=== PATIENT | male | born 1945 | race Caucasian/White ===

== ENCOUNTER → 2018-01-14 11:44 | Outpatient (CLI) | payer MEDICARE, OTHER, SELFPAY ==
[2018-01-14 13:30] LABS: Alanine Aminotransferase 23 IU/L (21-72); Albumin 4.3 g/dL (3.5-5.0); Albumin Globulin Ratio 1.7 (1.0-2.8); Alkaline Phosphatase 59 U/L (38-126); Aspartate Aminotransferase 25 IU/L (17-59); BUN Creatinine Ratio 22.5 (6-22); Bilirubin Total 0.6 mg/dL (0.2-1.3); Blood Urea Nitrogen 18 mg/dL (9-20); Calcium 9.5 mg/dL (8.4-10.2); Carbon Dioxide 28 mmol/L (22-32); Chloride 106 mmol/L (98-107); Cholesterol 195 mg/dL (140-199); Estimated Glomerular Filt Rate > 60.0 mL/min (>60); Globulin 2.5 g/dL (1.7-4.1); Glucose 97 mg/dL (80-110); HDL Cholesterol 40 mg/dL (40-60); LDL Cholesterol Calculated 132 mg/dL (<100); Potassium 4.8 mmol/L (3.4-5.1); Sodium 144 mmol/L (137-145); Total Protein 6.8 g/dL (6.3-8.2); Triglycerides 113 mg/dL (35-150)
[2018-01-14 14:02] LABS: HEMOLYSIS < 15 (0-50); Prostate Specific Antigen Scrn 0.413 ng/mL (0.1-4.0)
== END ==
PROVIDERS: PCP Family Medicine; Visit Provider Family Medicine
DX: I10 Essential (primary) hypertension (principal); Z76.89 Persons encountering health services in other specified circumstances
CPT/HCPCS: 36415; 80053; 80061; G0103

== ENCOUNTER → 2018-05-09 10:46 | Outpatient (CLI) | payer MEDICARE, OTHER, SELFPAY | PROVIDERS: Family Provider Internal Medicine; PCP Family Medicine; Visit Provider Family Medicine | DX: Z01.818 Encounter for other preprocedural examination (principal) | CPT/HCPCS: 87797 ==

== ENCOUNTER 2018-06-04 11:44 | Day surgery (SDC) | payer MEDICARE, OTHER, SELFPAY ==
[2018-06-04 12:24] VITALS: BP 144/89; PULSE 67; RESP 18; TEMP 36.2; O2SAT 98; BMI 25.6
[2018-06-04] MEDS: PROPARACAINE 0.5% OPHTH SOL 2 DROPS EYE-OP (12:28)
[2018-06-04] MEDS: CATARACT EYE COMPOUND (10 DROPS/SYRINGE) 3 DROPS EYE-OP (12:36)
--- NOTE | 2018-06-04 13:09 | PM.PREOP ---
Pre-operative Note Interval Note History & Physical reviewed/Exam performed by Physician: No Changes to H&P: No
--- NOTE | 2018-06-04 13:09 | PM.OP.1 ---
Operative Date/Time/Diagnoses Pre-op diagnosis: Nuclear Cataract Left eye Post-op diagnosis: same Procedure & Clinicians Surgeon: Arsenio Okeefe Anesthesia Type: MAC +/- and Sedation Operative Notes Procedure in detail: Patient brought to the operating suite. Tetracaine drops placed in the left eye. The marking instrument was used to anita the vertical and horizontal meridians. Patient was prepped and draped in sterile manner. Wire lid speculum was placed in the eye. The 150 degree meridian was marked. Betadine drops were placed on the eye. This was irrigated. Lidocaine jelly was placed on the eye. A paracentesis port was created with a side-port blade. 0.1 mL 1% preservative free lidocaine was injected into the anterior chamber. The anterior chamber was deepened with viscoelastic. 2.6 mm keratome was used to create a temporal clear corneal incision. Cystotome and Utrata forceps were used to create continuous tear capsulorrhexis. Balanced salt solution was used to hydro dissect the nucleus. The phacoemulsification handpiece was inserted and the nucleus was removed using the stop and chop technique. The irrigation aspiration handpiece was inserted and the remaining cortex was removed. Anterior chamber was deepened with viscoelastic. An Zhang [id number] intraocular lens with a power of 21.0 was injected into the capsular bag. Irrigation aspiration handpiece was inserted and the remaining viscoelastic was removed. The lens was rotated to [id number] degree meridian. Incision was hydrated with balanced salt solution and found to be leak free with pressure with Weck-Lupe sponges. 0.1 mL Vigamox injected anterior chamber. 0.3 mL Kenalog 10 mg was injected subconjunctivally. Lid speculum was removed. The patient left the operating room in excellent condition. Complications: none Condition: stable Disposition: same day surgery
[2018-06-04] MEDS: PHENYLEPHRINE/LIDOCAINE VIAL (OR) 0.2 ML EYE-OP (13:20)
[2018-06-04] MEDS: MOXIFLOXACIN OPHTH DROPS 3 ML BOTTLE 2 DROPS INJ (13:21)
[2018-06-04] MEDS: TRIAMCINOLONE 50 MG/5 ML VIAL INJ (13:21)
[2018-06-04] MEDS: CHONDROIDTIN/SOD HYALURONATE 1.05 ML SYRINGE INTRAOCULA (13:21)
[2018-06-04] MEDS: LIDOCAINE JELLY 2% 5 ML 1 APPLIC TOP (13:22)
[2018-06-04] MEDS: TETRACAINE 0.5% OPHTH DROPS 4 ML 2 DROPS EYE-OP (13:22)
[2018-06-04] MEDS: BALANCED SALT IRRIG SOLN NO.2 500 ML, EPINEPHrine 1 MG IRR (13:22)
[2018-06-04 13:38] VITALS: BP 128/87; PULSE 65; RESP 16; TEMP 36.6; O2SAT 95
== END 2018-06-04 13:57 | disposition home or self-care (01) ==
PROVIDERS: PCP Family Medicine; Visit Provider Ophthalmology
DX: H25.12 Age-related nuclear cataract, left eye (principal)
CPT/HCPCS: J0171; J2250; J3010; J3301; V2787

== ENCOUNTER 2018-06-18 07:14 | Day surgery (SDC) | payer MEDICARE, OTHER, SELFPAY ==
[2018-06-18 07:46] VITALS: BP 153/86; PULSE 67; RESP 15; TEMP 36; O2SAT 97
[2018-06-18 07:48] VITALS: BMI 25.7
[2018-06-18] MEDS: PROPARACAINE 0.5% OPHTH SOL 2 DROPS EYE-OP (07:55)
[2018-06-18] MEDS: CATARACT EYE COMPOUND (10 DROPS/SYRINGE) 3 DROPS EYE-OP (08:02)
[2018-06-18] MEDS: PHENYLEPHRINE/LIDOCAINE VIAL (OR) 0.2 ML EYE-OP (08:45)
[2018-06-18] MEDS: TETRACAINE 0.5% OPHTH DROPS 4 ML 2 DROPS EYE-OP (08:46)
[2018-06-18] MEDS: CHONDROIDTIN/SOD HYALURONATE 1.05 ML SYRINGE INTRAOCULA (08:46)
[2018-06-18] MEDS: MOXIFLOXACIN OPHTH DROPS 3 ML BOTTLE 2 DROPS INJ (08:46)
[2018-06-18] MEDS: TRIAMCINOLONE 50 MG/5 ML VIAL INJ (08:46)
[2018-06-18] MEDS: LIDOCAINE JELLY 2% 5 ML 1 APPLIC TOP (08:46)
[2018-06-18] MEDS: BALANCED SALT IRRIG SOLN NO.2 500 ML, EPINEPHrine 1 MG IRR (08:47)
--- NOTE | 2018-06-18 09:02 | PM.PREOP ---
Pre-operative Note Interval Note History & Physical reviewed/Exam performed by Physician: No Changes to H&P: No
--- NOTE | 2018-06-18 09:03 | P.OP_ITS ---
Operative Date/Time/Diagnoses Pre-op diagnosis: Nuclear cataract right eye Procedure & Clinicians Procedure: Cataract Surgery Same procedure as scheduled: Yes Surgeon: Arsenio Okeefe Anesthesia Type: MAC +/- and Sedation Operative Notes Procedure in detail: Patient brought to the operating suite. Tetracaine drops placed in the right eye. Marking instrument was used to anita the vertical and horizontal meridian. Patient was prepped and draped in sterile manner. Wire lid speculum was placed in the eye. marking instrument was used to anita the 30 degree meridian. Betadine drops were placed on the eye. This was irrigated. Lidocaine jelly was placed on the eye. A paracentesis port was created with a side-port blade. 0.1 mL 1% preservative free lidocaine was injected into the anterior chamber. The anterior chamber was deepened with viscoelastic. 2.6 mm keratome was used to create a temporal clear corneal incision. Cystotome and U trata forceps were used to create continuous tear capsulorrhexis. Balanced salt solution was used to hydro dissect the nucleus. The phacoemulsification handpiece was inserted and the nucleus was removed using the stop and chop technique. The irrigation aspiration handpiece was inserted and the remaining cortex was removed. Anterior chamber was deepened with viscoelastic. An Zhang [id number] intraocular lens with a power of 21.5 was injected into the capsular bag. Irrigation aspiration handpiece was inserted and the remaining viscoelastic was removed. The lens was rotated to the 30 degree meridian. Incision was hydrated with balanced salt solution and found to be leak free with pressure with Weck- Lupe sponges. 0.1 mL Vigamox injected anterior chamber. 0.3 mL Kenalog 10 mg was injected subconjunctivally. Lid speculum was removed. The patient left the operating room in excellent condition. Complications: none Condition: stable Disposition: same day surgery
[2018-06-18 09:05] VITALS: BP 137/77; PULSE 69; RESP 15; TEMP 36.3; O2SAT 97
== END 2018-06-18 09:20 | disposition home or self-care (01) ==
LOC: OR 07:15
PROVIDERS: PCP Family Medicine; Visit Provider Ophthalmology
DX: H25.11 Age-related nuclear cataract, right eye (principal)
CPT/HCPCS: J0171; J2250; J3301; V2787

== ENCOUNTER → 2019-02-10 10:47 | Outpatient (CLI) | payer MEDICARE, OTHER, SELFPAY ==
[2019-02-10 11:21] LABS: Add Manual Diff / Slide Review NO; Basophils Absolute Auto 0 /uL (0-100); Basophils Percent Auto 0.3 % (0-2); Eosinophils Absolute Auto 100 /uL (0-450); Eosinophils Percent Auto 2.6 % (2-4); Hematocrit 44.7 % (41-53); Hemoglobin 15.1 g/dL (13.5-17.5); Lymphocytes Absolute Auto 1200 /uL (1100-4500); Lymphocytes Percent Auto 35.5 % (25-40); Mean Corpuscular HGB Conc 33.8 % (30-36); Mean Corpuscular Hemoglobin 31.8 PG (26-34); Monocytes Absolute Auto 400 /uL (0-900); Monocytes Percent Auto 10.8 % (3-14); Neutrophils Absolute Auto 1700 /uL (1500-7000); Neutrophils Percent Auto 50.8 % (50-75); Platelet Count 247 X10^3/uL (150-400); Red Blood Cell Count 4.76 X10^6/uL (4.5-5.9); White Blood Cell Count 3.4 X10^3/uL (4.5-11.0)
[2019-02-10 11:56] LABS: Alanine Aminotransferase 16 IU/L (21-72); Albumin 4.4 g/dL (3.5-5.0); Albumin Globulin Ratio 1.8 (1.0-2.8); Alkaline Phosphatase 72 U/L (38-126); Aspartate Aminotransferase 24 IU/L (17-59); BUN Creatinine Ratio 16.3 (6-22); Bilirubin Total 0.7 mg/dL (0.2-1.3); Blood Urea Nitrogen 13 mg/dL (9-20); Calcium 9.3 mg/dL (8.4-10.2); Carbon Dioxide 26 mmol/L (22-32); Chloride 105 mmol/L (98-107); Cholesterol 206 mg/dL (140-199); Estimated Glomerular Filt Rate > 60.0 mL/min (>60); Globulin 2.5 g/dL (1.7-4.1); Glucose 106 mg/dL (80-110); HDL Cholesterol 40 mg/dL (40-60); HEMOLYSIS < 15 (0-50); LDL Cholesterol Calculated 138 mg/dL (<100); Potassium 4.5 mmol/L (3.4-5.1); Sodium 140 mmol/L (137-145); Total Protein 6.9 g/dL (6.3-8.2); Triglycerides 139 mg/dL (35-150)
[2019-02-10 12:27] LABS: TSH w/ Reflex to FT4 3.55 uIU/mL (0.47-4.68)
[2019-02-10 12:45] LABS: Vitamin B12 282 pg/mL (239-931)
[2019-02-12 17:56] LABS: Folate, RBC 507 ng/mL RBC (> 280)
[2019-02-12 21:48] LABS: Methylmalonic Acid 303 nmol/L (87-318)
== END ==
PROVIDERS: PCP Family Medicine; Visit Provider Family Medicine
DX: E78.5 Hyperlipidemia, unspecified (principal); G62.9 Polyneuropathy, unspecified; R03.0 Elevated blood-pressure reading, without diagnosis of hypertension; I10 Essential (primary) hypertension
CPT/HCPCS: 36415; 80053; 80061; 82607; 82747; 83090; 83921; 84443; 85025

== ENCOUNTER → 2019-04-21 14:10 | Outpatient (CLI) | payer MEDICARE, OTHER, SELFPAY ==
[2019-04-21 15:39] LABS: Vitamin B12 389 pg/mL (239-931)
[2019-04-25 14:42] LABS: Homocysteine 18.7 umol/L (< 11.4)
== END ==
PROVIDERS: PCP Family Medicine; Visit Provider Family Medicine
DX: E78.5 Hyperlipidemia, unspecified (principal); G62.9 Polyneuropathy, unspecified; R03.0 Elevated blood-pressure reading, without diagnosis of hypertension
CPT/HCPCS: 82607; 83090

== ENCOUNTER → 2019-08-02 08:27 | Outpatient (CLI) | payer MEDICARE, OTHER, SELFPAY ==
[2019-08-02 09:25] LABS: BUN Creatinine Ratio 15.9 (6-22); Blood Urea Nitrogen 14 mg/dL (9-20); Calcium 9.1 mg/dL (8.4-10.2); Carbon Dioxide 25 mmol/L (22-32); Chloride 107 mmol/L (98-107); Cholesterol 173 mg/dL (140-199); Estimated Glomerular Filt Rate > 60.0 mL/min (>60); Glucose 103 mg/dL (80-110); HDL Cholesterol 30 mg/dL (40-60); HEMOLYSIS < 15 (0-50); LDL Cholesterol Calculated 127 mg/dL (<100); Potassium 4.3 mmol/L (3.4-5.1); Sodium 140 mmol/L (137-145); Triglycerides 80 mg/dL (35-150)
[2019-08-02 10:14] LABS: Vitamin B12 388 pg/mL (239-931)
[2019-08-03 07:16] LABS: Homocysteine 19.6 umol/L (0.0-19.2)
[2019-08-04 18:07] LABS: Methylmalonic Acid,Serum 200 nmol/L (0-378)
== END ==
PROVIDERS: PCP Family Medicine; Referring Provider Family Medicine; Visit Provider Family Medicine
DX: G62.9 Polyneuropathy, unspecified (principal); R03.0 Elevated blood-pressure reading, without diagnosis of hypertension; E78.5 Hyperlipidemia, unspecified; R73.01 Impaired fasting glucose; I10 Essential (primary) hypertension
CPT/HCPCS: 36415; 80048; 80061; 82607; 83090; 83921

== ENCOUNTER → 2020-01-03 14:31 | Outpatient (CLI) | payer MEDICARE, OTHER, SELFPAY ==
[2020-01-06 12:10] LABS: COVID19 -Nasal RAPID Negative (Negative)
== END ==
PROVIDERS: PCP Family Medicine; Visit Provider Physician Assistant
DX: Z11.59 Encounter for screening for other viral diseases (principal)
CPT/HCPCS: 87635

== ENCOUNTER 2020-01-06 11:26 | Day surgery (SDC) | payer MEDICARE, OTHER, SELFPAY ==
[2020-01-06] VITALS (7 sets, daily range): BP systolic 119–147; BP diastolic 79–94; PULSE 64–79; RESP 10–16; TEMP 36.2–36.6; O2SAT 76–97; BMI 23.3
[2020-01-06] MEDS: LACTATED RINGERS 1,000 ML 42 ML IV (11:57)
--- NOTE | 2020-01-06 12:45 | PM.HP.1 ---
History of Present Illness History of Present Illness Date Patient Seen: 01/06/20 Time Patient Seen: 12:45 Chief complaint: SCREENING COLONOSCOPY Narrative: This is a 74-year-old man who is here for screening colonoscopy. He had a prior colonoscopy approximately 10 years ago, was told it was normal. In the interim he has not had any new symptoms such as blood in the stool, dark colored/tarry looking stool, unexplained abdominal pain, or unexplained weight loss. He denies any significant family history of colon polyps or colon cancers. He says he is otherwise quite healthy, denies any significant cardiac, renal, or pulmonary dysfunction. ROS: Positive for GERD, enlarged prostate, easy bruising, neuropathy hard of hearing. Thirteen system review is otherwise negative other than as mentioned below and in HPI. PE: GENERAL: Well groomed and cooperative. Appears stated age. Answers questions promptly and appropriately. Vital signs noted. HENT: Normocephalic, atraumatic. Hearing intact. EYES: Conjunctiva pink, sclera white, no periorbital swelling. CARDIOVASCULAR: Regular rate. No pedal edema. RESPIRATORY: Non-tachypneic, breathing comfortably on room air. GASTROINTESTINAL: Abdomen soft and non-distended GENITALURINARY: No flank tenderness. MUSCULOSKELETAL: Equal tone and mass bilaterally. SKIN: Warm, dry, soft, appropriate color for ethnicity. No other lesions, rashes, or wounds. NEURO: Alert and Oriented X 3. No gross sensory deficits, or cognitive issues. PSYCH: Appropriate affect and mood. Patient History Medical History Actinic keratosis (Chronic) Acute labyrinthitis (Resolved) Basal cell carcinoma of right hand (Chronic ~2015) Benign prostatic hyperplasia (Chronic) Chicken pox (Resolved) Dupuytren's contracture of hand (Chronic) Eczema (Chronic) Erectile dysfunction (Chronic) Foot pain (Chronic ~2015) Headache (Chronic) Hearing loss (Chronic) History of herpes simplex infection (Resolved) Measles (Resolved) Migraines (Chronic) Mumps (Resolved) Peripheral neuropathy (Chronic ~02/10/19) Peyronie's syndrome (Acute) Restless leg syndrome (Chronic) Shoulder pain (Chronic) Skin cancer (Chronic ~2017) Tinnitus (Chronic ~1979) Vision disorder (Chronic) Surgical History Anesthesia (Resolved) History of shoulder surgery (Resolved ~2010) History of tonsillectomy and adenoidectomy (Resolved) History of tooth extraction (Resolved) Family & Social History Family History Father No problems noted. Mother Bone cancer Lung cancer Actinic keratosis Skin cancer Sister Mental health problem Fever Lung disease Grandmother Stroke Grandmother No problems noted. Social History: household members spouse Tobacco & Substance use: Smoking Status Former smoker alcohol intake never Substance Use Type does not use Meds Home Medications and Allergies Home Medications Medication Instructions Recorded Confirmed Type acetaminophen 325 mg tablet 325 mg PO Q6H PRN 01/14/18 01/06/20 History aspirin 81 mg tablet,delayed 81 mg PO DAILY 01/14/18 01/06/20 History release ibuprofen 200 mg tablet 200 mg PO QID PRN 01/14/18 01/06/20 History Viagra 50 mg tablet See Rx Instructions PO .COMPLEX 10/20/19 01/06/20 Rx PRN #12 tab NS Allergies Allergy/AdvReac Type Severity Reaction Status Date / Time sildenafil AdvReac Intermediate Stomach Verified 08/04/19 08:23 pain, low BP Exam Vital Signs (past 8 hours): - 01/06/20 11:51 Temperature 97.3 F L Pulse Rate 79 Respiratory Rate 14 Blood Pressure 147/94 H Pulse Oximetry 76 L Oxygen Delivery Method Room Air Oxygen Flow Rate 99 Assessment & Plan Assessment and plan (1) At average risk for colon cancer: Status: Acute Assessment & Plan narrative: Risks and benefits of screening colonoscopy and possible polypectomy were discussed with the patient including risk of bleeding, perforation, need for additional procedures, risks of anesthesia. The patient desires to proceed with the colonoscopy procedure. COVID-19 COVID-19 status: Negative Result date/Date tested (Pos, Neg/Pending): 01/06/20 Time Spent With Patient Time with patient: 15-24 minutes Quality VTE Deep Vein Thrombosis/Pulmonary Embolism Present on Admission: No
[2020-01-06] MEDS: MIDAZOLAM 5 MG/5 ML VIAL IV (13:04)
[2020-01-06] MEDS: fentaNYL 250 MCG/5 ML INJ IV (13:04)
--- NOTE | 2020-01-06 13:24 | P.OP.ENDO_ITS ---
Operative Date/Time/Diagnoses Date of procedure: 01/06/20 Time of procedure: 13:24 Pre-op diagnosis: Average risk for colon cancer Post-op diagnosis: other (Diverticulosis, otherwise normal colon) Procedure & Clinicians Study performed: Colonoscopy Conscious sedation performed by the endoscopist Indications: Average risk for colon cancer, due for 10 years scope Surgeon: Adriane Bentley Procedure Notes SCOAP/Timeout: Performed Procedure in detail: The patient was brought to the room and placed in left lateral decubitus position with all bony prominences padded. A time-out was performed and then the patient was given procedural sedation starting with 4 mg of Versed and 100 mcg of fentanyl. Total of 5 mg of Versed and 150 micro g of fentanyl were given for the entire procedure. Vitals were monitored throughout the procedure and remained stable. Once adequately sedated, the procedure was begun. A rectal exam was performed revealing no abnormalities. The colonoscope was then introduced to the rectum and advanced to the cecum in the usual fashion. The cecum was identified by the appendiceal orifice, the mucosal tri- fold, and the ileocecal valve. The scope was then retracted while rotating side to side and examining each mucosal fold. Moderate diverticulosis seen in the sigmoid colon. No signs of active diverticulitis. At the conclusion of the procedure retroflexion was performed and small grade 1-2 internal hemorrhoids w ithout stigmata of bleeding were seen. The scope was then withdrawn from the rectum the procedure was concluded. The patient tolerated the procedure well and was transferred to the PACU in stable condition. Scope withdrawal time: 8 Sedation minutes: 19 Findings: diverticulosis Specimen(s): none sent Complications: none Impression: Monitor Sigmoid diverticulosis Post-procedure Recommendations: Colonscopy in 10 years Follow up: weeks Disposition: PACU
--- NOTE | 2020-01-06 14:08 | SUR.PHASEII ---
Pt up and ambulating gait steady, getting dressed now. All dc instructions given and pt verbalizes understanding. at bs. Iv dcd site clear.
--- NOTE | 2020-01-06 14:16 | SUR.PHASEII ---
Pt dcd in stable condition via wc with no c/o.
== END 2020-01-06 14:17 | disposition home or self-care (01) ==
PROVIDERS: PCP Family Medicine; Referring Provider Surgery; Visit Provider Surgery
PROC: 0DJD8ZZ Inspection of Lower Intestinal Tract, Via Natural or Artificial Opening Endoscopic (ICD-10-PCS; CPT 45378; principal; 2020-01-06 13:00)
DX: Z12.11 Encounter for screening for malignant neoplasm of colon (principal); K57.30 Diverticulosis of large intestine without perforation or abscess without bleeding; K64.0 First degree hemorrhoids
CPT/HCPCS: G0121; 99152; J2250; J3010

== ENCOUNTER → 2020-03-24 08:34 | Outpatient (CLI) | payer MEDICARE, OTHER, SELFPAY ==
[2020-03-24 10:43] LABS: BUN Creatinine Ratio 14.4 (6-22); Blood Urea Nitrogen 13 mg/dL (9-20); Carbon Dioxide 30 mmol/L (22-32); Chloride 106 mmol/L (98-107); Cholesterol 183 mg/dL (140-199); Estimated Glomerular Filt Rate > 60.0 mL/min (>60); Glucose 102 mg/dL (80-110); HDL Cholesterol 32 mg/dL (40-60); HEMOLYSIS < 15 (0-50); LDL Cholesterol Calculated 123 mg/dL (<100); Potassium 4.7 mmol/L (3.4-5.1); Sodium 138 mmol/L (137-145); Triglycerides 141 mg/dL (35-150)
[2020-03-24 11:26] LABS: Vitamin B12 494 pg/mL (239-931)
[2020-03-25 05:50] LABS: Homocysteine 18.5 umol/L (0.0-19.2)
[2020-03-25 07:09] LABS: Insulin Level Total 11.2 uIU/mL (2.6-24.9)
== END ==
PROVIDERS: PCP Family Medicine; Referring Provider Family Medicine; Visit Provider Family Medicine
DX: Z83.3 Family history of diabetes mellitus (principal); E72.11 Homocystinuria; G62.9 Polyneuropathy, unspecified; R03.0 Elevated blood-pressure reading, without diagnosis of hypertension; R73.01 Impaired fasting glucose
CPT/HCPCS: 36415; 80048; 80061; 82607; 83090; 83525

== ENCOUNTER → 2020-07-23 11:22 | Outpatient (CLI) | payer MEDICARE, OTHER, SELFPAY ==
[2020-07-24 11:12] LABS: SARS CoV19 IgG Negative (Negative); SARS-CoV19- IgM Negative (Negative)
== END ==
PROVIDERS: PCP Family Medicine; Referring Provider Family Medicine; Visit Provider Family Medicine
DX: Z20.822 Contact with and (suspected) exposure to COVID-19 (principal)
CPT/HCPCS: 36415; 86769

== ENCOUNTER → 2021-03-14 09:46 | Outpatient (CLI) | payer MEDICARE, OTHER, SELFPAY ==
[2021-03-14 10:51] LABS: Hemoglobin A1C% w Est Avg Glu 5.3 % (4.0-6.0)
[2021-03-14 11:25] LABS: Alanine Aminotransferase 12 IU/L (<50); Albumin Globulin Ratio 1.8 (1.0-2.8); Alkaline Phosphatase 53 U/L (38-126); Aspartate Aminotransferase 23 IU/L (17-59); BUN Creatinine Ratio 21.7 (6-22); Bilirubin Total 0.5 mg/dL (0.2-1.3); Blood Urea Nitrogen 20 mg/dL (9-20); Calcium 8.9 mg/dL (8.4-10.2); Carbon Dioxide 26 mmol/L (22-32); Chloride 107 mmol/L (98-107); Cholesterol 187 mg/dL (140-199); Estimated Glomerular Filt Rate > 60.0 mL/min (>60); Globulin 2.2 g/dL (1.7-4.1); Glucose 100 mg/dL (80-110); HDL Cholesterol 39 mg/dL (40-60); HEMOLYSIS < 15 (0-50); LDL Cholesterol Calculated 133 mg/dL (<100); Potassium 4.7 mmol/L (3.4-5.1); Sodium 139 mmol/L (137-145); Total Protein 6.2 g/dL (6.3-8.2); Triglycerides 74 mg/dL (35-150)
== END ==
PROVIDERS: PCP Family Medicine; Referring Provider Family Medicine; Visit Provider Family Medicine
DX: R73.01 Impaired fasting glucose (principal); R03.0 Elevated blood-pressure reading, without diagnosis of hypertension; Z83.3 Family history of diabetes mellitus; G62.9 Polyneuropathy, unspecified; R73.03 Prediabetes; E78.00 Pure hypercholesterolemia, unspecified
CPT/HCPCS: 36415; 80053; 80061; 83036

== ENCOUNTER 2021-05-03 09:45 | Outpatient (RCR) | payer MEDICARE, OTHER, SELFPAY ==
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
--- NOTE | 2021-04-12 14:11 | PT.OPPOC ---
Physical, Occupational & Speech Therapy At [facility] Current Diagnoses Pain in right shoulder (04/11/21) Pain in left shoulder (04/11/21) Pain in left hip (04/11/21) Visit Care Team Role Provider Type Divya Young DO Attending Provider Physician Family Provider Primary Care Provider Referring Provider Specialty: Family Practice Address: [address] [place] [address], [address], [facility] Email: [email or web address] Plan Of Care PT-OP-T Assessment and Plan Start: 04/11/21 16:44 Freq: Status: Active Protocol: Document 04/11/21 16:00 DCW (Rec: 04/12/21 14:10 DCW [id number]) Physical Therapy Assessment Rehab Potential Rehabilitation Potential Excellent Evaluation Complexity Number of Personal Factors/Comorbidities 1-2 Number of Body Systems Impaired 1-2 Clinical Presentation at Evaluation Stable Impairments Impairments Functional Mobility,Pain,ROM, Soft Tissue Mobility,Strength, Tone Goals Two Impairment Pt exhibits right shoulder weakness which impacts his ability at work 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 LTG Duration 06/12/21 One Impairment Pt does not have an appropriate home exercise program Short Term Goal (STG) Pt to be independent and compliant with an appropriate HEP STG Duration 05/12/21 Assessment Summary Assessment Pt presents with signs and symptoms of increased tone of his subscapularis and infraspinatus with associated weakness in all planes of his right shoulder, especially external rotation, in addition to decreased right scapulothoracic rhythm. No positive special testing which suggest soft tissue tears or structural changes. Pt should benefit from skilled therapy focusing on strengthening, STM , joint mobilizations, and flexibility. Pt appears to be well motivated, and seems like he will be very compliant with an appropriate HEP. Physical Therapy Plan Frequency and Duration Frequency of Treatment 2x/Week Duration of Treatment Two months Plan of Care Start Date 04/11/21 Plan of Care End Date 06/12/21 Therapeutic Interventions Therapeutic Interventions Home Exercise Program,Joint Mobilizations,Manual Therapy, Patient/Caregiver Education, Self-Care/Home Management,Soft Tissue Mobilization, Therapeutic Activities, Therapeutic Exercises Modalities Cold Pack/Ice Massage,Electric Stimulation,Hot Packs, Ultrasound Next Visit Focus/Plan Next Note Type Treatment Note Next Visit Plan STM, joint mobs, strengthening Plan of Care Dates Plan of Care Start Date 04/11/21 Plan of Care End Date 06/12/21 Electronically Signed by: Jeffy De Souza, PT 04/12/21 1057 Please Sign and Return: I have reviewed this Plan of Care and certify that the skilled therapy services above are required to meet the patient?s needs. Physician Signature Date Printed Name and Credentials Clinical Instructor Signature Printed Name and Credentials
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
== END 2021-05-31 08:39 | disposition home or self-care (01) ==
LOC: PHYS 09:45
PROVIDERS: Family Provider Family Medicine; PCP Family Medicine; Referring Provider Family Medicine; Visit Provider Family Medicine
DX: M25.511 Pain in right shoulder (principal); M25.512 Pain in left shoulder; M25.552 Pain in left hip
CPT/HCPCS: 97110; 97140; 97161

== ENCOUNTER → 2021-07-28 08:41 | Outpatient (CLI) | payer MEDICARE, OTHER, SELFPAY ==
[2021-07-28 11:36] LABS: Vitamin B12 470 pg/mL (239-931)
== END ==
PROVIDERS: Family Provider Family Medicine; PCP Family Medicine; Referring Provider Family Medicine; Visit Provider Family Medicine
DX: G62.9 Polyneuropathy, unspecified (principal)
CPT/HCPCS: 36415; 82607

== ENCOUNTER → 2021-12-10 07:12 | Outpatient (CLI) | payer MEDICARE, OTHER, SELFPAY ==
[2021-12-10 07:52] LABS: COVID19 -Nasal RAPID POSITIVE (Negative)
== END ==
PROVIDERS: Family Provider Family Medicine; PCP Pediatrics; Visit Provider Nurse Practitioner Family
DX: U07.1 COVID-19 (principal)
CPT/HCPCS: 87635

== ENCOUNTER → 2022-04-17 10:35 | Outpatient (CLI) | payer MEDICARE, OTHER, SELFPAY ==
[2022-04-17 11:20] LABS: Add Manual Diff / Slide Review NO; Basophils Absolute Auto 100 /uL (0-100); Basophils Percent Auto 1.3 % (0-2); Eosinophils Absolute Auto 100 /uL (0-450); Eosinophils Percent Auto 2.3 % (2-4); Hematocrit 43.2 % (41-53); Hemoglobin 14.3 g/dL (13.5-17.5); Lymphocytes Absolute Auto 1000 /uL (1100-4500); Lymphocytes Percent Auto 25.5 % (25-40); Mean Corpuscular HGB Conc 33.2 % (30-36); Mean Corpuscular Hemoglobin 31.7 PG (26-34); Mean Corpuscular Volume 95.5 fL (80-100); Monocytes Absolute Auto 300 /uL (0-900); Neutrophils Absolute Auto 2600 /uL (1500-7000); Neutrophils Percent Auto 62.9 % (50-75); Platelet Count 248 X10^3/uL (150-400); Red Blood Cell Count 4.52 X10^6/uL (4.5-5.9); Red Cell Distribution Width 12.9 % (11.6-14.8); White Blood Cell Count 4.1 X10^3/uL (4.5-11.0)
[2022-04-17 11:42] LABS: Alanine Aminotransferase 16 IU/L (<50); Albumin 4.1 g/dL (3.5-5.0); Albumin Globulin Ratio 1.6 (1.0-2.8); Alkaline Phosphatase 54 U/L (38-126); Aspartate Aminotransferase 22 IU/L (17-59); BUN Creatinine Ratio 19.8 (6-22); Bilirubin Total 0.5 mg/dL (0.2-1.3); Blood Urea Nitrogen 16 mg/dL (9-20); Calcium 9.1 mg/dL (8.4-10.2); Carbon Dioxide 29 mmol/L (22-32); Chloride 105 mmol/L (98-107); Cholesterol 191 mg/dL (140-199); Estimated Glomerular Filt Rate > 60 mL/min (>60); Globulin 2.5 g/dL (1.7-4.1); Glucose 106 mg/dL (80-110); HDL Cholesterol 45 mg/dL (40-60); HEMOLYSIS < 15 (0-50); LDL Cholesterol Calculated 130 mg/dL (<100); Potassium 4.7 mmol/L (3.4-5.1); Sodium 139 mmol/L (137-145); Total Protein 6.6 g/dL (6.3-8.2); Triglycerides 78 mg/dL (35-150)
[2022-04-17 11:58] LABS: Vitamin D 25 Hydroxy (D3) 101 ng/mL (30.0-100.0)
== END ==
PROVIDERS: Family Provider Family Medicine; PCP Family Medicine; Referring Provider Family Medicine; Visit Provider Family Medicine
DX: E78.00 Pure hypercholesterolemia, unspecified (principal); E55.9 Vitamin D deficiency, unspecified; R73.01 Impaired fasting glucose; Z13.6 Encounter for screening for cardiovascular disorders; Z13.9 Encounter for screening, unspecified
CPT/HCPCS: 36415; 80053; 80061; 82306; 85025

== ENCOUNTER → 2022-09-16 08:36 | Outpatient (CLI) | payer MEDICARE, OTHER, SELFPAY ==
[2022-09-16 09:28] LABS: Alanine Aminotransferase 16 IU/L (<50); Albumin 3.8 g/dL (3.5-5.0); Albumin Globulin Ratio 1.5 (1.0-2.8); Alkaline Phosphatase 51 U/L (38-126); Aspartate Aminotransferase 22 IU/L (17-59); BUN Creatinine Ratio 20.2 (6-22); Bilirubin Total 0.4 mg/dL (0.2-1.3); Blood Urea Nitrogen 18 mg/dL (9-20); Calcium 8.6 mg/dL (8.4-10.2); Carbon Dioxide 30 mmol/L (22-32); Chloride 105 mmol/L (98-107); Cholesterol 165 mg/dL (140-199); Estimated Glomerular Filt Rate > 60 mL/min (>60); Globulin 2.5 g/dL (1.7-4.1); Glucose 97 mg/dL (80-110); HDL Cholesterol 35 mg/dL (40-60); HEMOLYSIS < 15 (0-50); LDL Cholesterol Calculated 116 mg/dL (<100); Potassium 4.6 mmol/L (3.4-5.1); Sodium 139 mmol/L (137-145); Total Protein 6.3 g/dL (6.3-8.2); Triglycerides 72 mg/dL (35-150)
[2022-09-16 09:30] LABS: Hematocrit 40.6 % (41-53); Hemoglobin 13.8 g/dL (13.5-17.5); Mean Corpuscular Hemoglobin 32.3 PG (26-34); Platelet Count 240 X10^3/uL (150-400); Red Blood Cell Count 4.27 X10^6/uL (4.5-5.9); Red Cell Distribution Width 13.4 % (11.6-14.8); White Blood Cell Count 2.8 X10^3/uL (4.5-11.0)
[2022-09-16 09:45] LABS: Vitamin D 25 Hydroxy (D3) 86.9 ng/mL (30.0-100.0)
[2022-09-16 10:01] LABS: Neutrophils Absolute Manual 1372 /uL (3000-5900); RBC Morphology Normal Morphology; Total Cells Counted 100
== END ==
PROVIDERS: Family Provider Family Medicine; PCP Family Medicine; Referring Provider Family Medicine; Visit Provider Family Medicine
DX: E55.9 Vitamin D deficiency, unspecified (principal); E78.00 Pure hypercholesterolemia, unspecified; R03.0 Elevated blood-pressure reading, without diagnosis of hypertension
CPT/HCPCS: 36415; 80053; 80061; 82306; 85025

== ENCOUNTER 2023-02-18 09:46 | Emergency (ER) | payer MEDICARE, OTHER, SELFPAY ==
[2023-02-18] VITALS (7 sets, daily range): BP systolic 153–183; BP diastolic 88–113; PULSE 56–70; RESP 12–22; TEMP 36.8; O2SAT 96–98; BMI 23.7
--- NOTE | 2023-02-18 10:06 | DI.RAD.S_ITS ---
PROCEDURE: XR CHEST 1V INDICATIONS: chest pain TECHNIQUE: One view of the chest was acquired. COMPARISON: None. FINDINGS: Surgical changes and devices: None. Lungs and pleura: Lungs are clear. No pleural effusions or pneumothorax. Mediastinum: Mediastinal contours appear normal. Heart size is normal. Bones and chest wall: No suspicious bony lesions. Overlying soft tissues appear unremarkable. IMPRESSION: Portable chest within normal limits for age. Approved by: Tim Corrales M.D. on 02/18/2023 at 9:24
[2023-02-18 10:15] LABS: Add Manual Diff / Slide Review NO; Basophils Absolute Auto 0 /uL (0-100); Eosinophils Absolute Auto 200 /uL (0-450); Eosinophils Percent Auto 4.5 % (2-4); Hematocrit 39.8 % (41-53); Hemoglobin 13.5 g/dL (13.5-17.5); Lymphocytes Absolute Auto 600 /uL (1100-4500); Lymphocytes Percent Auto 16.3 % (25-40); Mean Corpuscular Hemoglobin 32.1 PG (26-34); Mean Corpuscular Volume 94.6 fL (80-100); Monocytes Absolute Auto 400 /uL (0-900); Neutrophils Absolute Auto 2700 /uL (1500-7000); Neutrophils Percent Auto 68.2 % (50-75); Platelet Count 239 X10^3/uL (150-400); Red Blood Cell Count 4.21 X10^6/uL (4.5-5.9); Red Cell Distribution Width 13.2 % (11.6-14.8)
[2023-02-18 10:22] LABS: Prothrombin Time 11.2 SECONDS (10.1-12.7)
[2023-02-18 10:25] LABS: PTT Partial Thromboplastin Tim 32 SECONDS (26-36)
[2023-02-18 10:26] LABS: Alanine Aminotransferase 15 IU/L (<50); Albumin Globulin Ratio 1.5 (1.0-2.8); Alkaline Phosphatase 56 U/L (38-126); Aspartate Aminotransferase 25 IU/L (17-59); BUN Creatinine Ratio 19.1 (6-22); Bilirubin Total 0.3 mg/dL (0.2-1.3); Blood Urea Nitrogen 17 mg/dL (9-20); Carbon Dioxide 27 mmol/L (22-32); Chloride 106 mmol/L (98-107); Creatine Kinase 64 U/L (55-170); Estimated Glomerular Filt Rate > 60 mL/min (>60); Globulin 2.6 g/dL (1.7-4.1); Glucose 106 mg/dL (80-110); HEMOLYSIS < 15 (0-50); Lipase 87 U/L (23-300); Magnesium 2.1 mg/dL (1.6-2.3); Potassium 4.7 mmol/L (3.4-5.1); Sodium 138 mmol/L (137-145); Total Protein 6.6 g/dL (6.3-8.2)
--- NOTE | 2023-02-18 10:27 | ED_ITS ---
HPI - Chest Pain General Chief Complaint: Chest Pain Stated Complaint: chest and back pain Time Seen by Provider: 02/18/23 10:24 Source: patient Mode of arrival: Family Vehicle Limitations: no limitations History of Present Illness HPI narrative: Patient is a 77-year-old male not significant past medical history reports having left-sided rib pain. It has been ongoing for about a week it hurts to touch hurts to move and taking Tylenol ibuprofen without significant relief. Pain seems to be getting worse. No significant shortness of breath no abdominal pain or other symptoms. No prior history of coronary artery disease. He reports that about 1 week ago he was shoveling some dirt he thinks he maybe injured himself in his shoulder region. However he is having more pain in his left lower ribs. He thinks it might be pleurisy. But it does not hurt every time he breathes. Related Data Home Medications Medication Instructions Recorded Confirmed acetaminophen 325 mg tablet 325 mg PO Q6H PRN Pain (Scale 01/14/18 04/17/22 (Tylenol) Score 4-6) aspirin 81 mg tablet,delayed 81 mg PO DAILY 01/14/18 04/17/22 release (Aspir-) ibuprofen 200 mg tablet (Motrin IB) 200 mg PO QID PRN Pain (Scale 01/14/18 04/17/22 Score 1-3) ascorbic acid (vitamin C) PO 04/17/22 04/17/22 cholecalciferol (vitamin D3) PO 04/17/22 04/17/22 vitamin B complex [B PO 04/17/22 04/17/22 Complex-Vitamin B12] zinc acetate PO 04/17/22 04/17/22 Previous Rx's Medication Instructions Recorded epinephrine 0.3 mg/0.3 mL 0.3 ml IM ONCE prn allergic 10/28/20 injection, auto-injector reaction #1 ea Viagra 100 mg tablet (sildenafil) 100 mg PO DAILY PRN sexual 09/22/22 activity #20 tabs lidocaine 5 % topical patch 1 patch topical DAILY PRN pain 02/18/23 (scale score 7-10) #30 ea Allergies Allergy/AdvReac Type Severity Reaction Status Date / Time sildenafil AdvReac Intermediate Stomach Verified 02/18/23 09:33 pain, low BP Patient History Medical History Hyperlipidemia Shoulder pain Exposure to COVID-19 virus Sigmoid diverticulosis Impaired fasting glucose Overweight Erectile dysfunction Peyronie's syndrome Dupuytren's contracture of hand Elevated blood pressure reading in office with white coat syndrome, without diagnosis of hypertension Vision disorder Basal cell carcinoma of right hand (~2015) Eczema Actinic keratosis Restless leg syndrome Peripheral neuropathy (~02/10/19) Migraines Headache Foot pain (~2015) Mumps Measles History of herpes simplex infection Chicken pox Tinnitus (~1979) Hearing loss Benign prostatic hyperplasia Skin cancer (~2017) Acute labyrinthitis Surgical History Anesthesia History of tooth extraction History of shoulder surgery (~2010) History of tonsillectomy and adenoidectomy Family History Father No problems noted. Mother Bone cancer Lung cancer Actinic keratosis Skin cancer Sister Mental health problem Fever Lung disease Grandmother Stroke Grandmother No problems noted. Social History household members: spouse Smoking Status: Former smoker alcohol intake: never Smoking Status: Former smoker Substance Use Type: does not use Exam Initial Vital Signs Initial Vital Signs: Vital Signs Pulse Rate 69 02/18/23 09:53 Pulse Oximetry 98 02/18/23 09:53 GENERAL: Alert pleasant 77-year-old male HEENT: Head atraumatic,EOMI, pupils reactive, face symmetric, moist mucous membranes CARDIOVASCULAR: Regular rate and rhythm without murmurs, rubs or gallops. RESPIRATORY: Breath sounds equal bilaterally, no wheezes rales or rhonchi. Tender to palpation left anterior inferior ribs no obvious paroxysmal motion or deformity. However pain is reproducible. ABDOMEN: Soft, nontender. Normoactive bowel sounds all 4 quadrants. No guarding or rebound. EXTREMITIES: Normal range of motion, no clubbing or edema. Neurovascularly intact NEUROLOGICAL: Alert and oriented x4. SKIN: Warm, dry, no laceration, no petechiae, no rashes or lesions. Scores HEART Score Heart Score history: Slightly Suspicious Heart Score EKG: Normal Heart Score Age: > or = 65 years old Heart Score risk factors: No known risk factors Heart Score troponin: < or = to normal limit Heart Score Total: 2 Course Orders Ordered: ED Orders 02/18/23 10:06 XR chest 1V Stat EKG-12 Lead Stat 02/18/23 10:08 Complete Blood Count AUTO DIFF Stat Comprehensive Metabolic Panel Stat Lipase Stat Magnesium Stat PTT Partial Thromboplastin Colten Stat Prothrombin Time INR Stat Troponin & CK Cardiac Panel Stat Discontinued Medications Ketorolac Tromethamine (Ketorolac 30 Mg/Ml Vial) 15 mg IV NOW ONE Stop: 02/18/23 11:20 Last Admin: 02/18/23 11:24 Dose: 15 mg Documented By: JOSEPH Vital Signs Vital signs: Vital Signs - 8 hr 02/18/23 09:53 02/18/23 09:55 02/18/23 09:55 Temperature Pulse Rate 69 66 Respiratory Rate 12 Blood Pressure 173/96 H Pulse Oximetry 98 98 Oxygen Delivery Method Room Air 02/18/23 10:00 02/18/23 10:00 02/18/23 10:00 Temperature 98.2 F Pulse Rate 70 64 Respiratory Rate 16 22 Blood Pressure 173/96 H 174/94 H Pulse Oximetry 98 97 Oxygen Delivery Method Room Air 02/18/23 10:30 02/18/23 10:30 02/18/23 11:00 Temperature Pulse Rate 69 Respiratory Rate 18 Blood Pressure 176/113 H 153/88 H Pulse Oximetry 97 Oxygen Delivery Method Room Air 02/18/23 11:00 02/18/23 11:18 02/18/23 11:18 Temperature Pulse Rate 59 L 61 Respiratory Rate 12 20 Blood Pressure 183/106 H Pulse Oximetry 96 98 Oxygen Delivery Method 02/18/23 11:23 02/18/23 11:23 Temperature Pulse Rate 56 L Respiratory Rate 17 Blood Pressure 163/90 H Pulse Oximetry 98 Oxygen Delivery Method MDM - Chest Pain Lab Data 02/18/23 10:08 02/18/23 10:08 Labs: Lab Results 02/18/23 Range/Units 10:08 WBC 4.0 L (4.5-11.0) X10^3/uL RBC 4.21 L (4.5-5.9) X10^6/uL Hgb 13.5 (13.5-17.5) g/dL Hct 39.8 L (41-53) % MCV 94.6 (80-100) fL MCH 32.1 (26-34) PG MCHC 34.0 (30-36) % RDW 13.2 (11.6-14.8) % Plt Count 239 (150-400) X10^3/uL Neut % (Auto) 68.2 (50-75) % Lymph % (Auto) 16.3 L (25-40) % [place] % (Auto) 10.0 (3-14) % Eos % (Auto) 4.5 H (2-4) % Baso % (Auto) 1.0 (0-2) % Neut # (Auto) 2700 (9379-8118) /uL Lymph # (Auto) 600 L (2822-4685) /uL [place] # (Auto) 400 (0-900) /uL Eos # (Auto) 200 (0-450) /uL Baso # (Auto) 0 (0-100) /uL PT 11.2 (10.1-12.7) SECONDS INR 1.0 (0.9-1.3) APTT 32 (26-36) SECONDS Sodium 138 (137-145) mmol/L Potassium 4.7 (3.4-5.1) mmol/L Chloride 106 (98-107) mmol/L Carbon Dioxide 27 (22-32) mmol/L BUN 17 (9-20) mg/dL Creatinine 0.89 (0.66-1.25) mg/dL Estimated GFR > 60 (>60) mL/min BUN/Creatinine Ratio 19.1 (6-22) Glucose 106 (80-110) mg/dL Calcium 9.0 (8.4-10.2) mg/dL Magnesium 2.1 (1.6-2.3) mg/dL Total Bilirubin 0.3 (0.2-1.3) mg/dL AST 25 (17-59) IU/L ALT 15 (<50) IU/L Alkaline Phosphatase 56 (38-126) U/L Total Creatine Kinase 64 (55-170) U/L Troponin I < 0.012 (0.01-0.034) ng/mL Total Protein 6.6 (6.3-8.2) g/dL Albumin 4.0 (3.5-5.0) g/dL Globulin 2.6 (1.7-4.1) g/dL Albumin/Globulin Ratio 1.5 (1.0-2.8) Lipase 87 (23-300) U/L Imaging Data Chest x-ray: Radiologist's Impression: PROCEDURE: XR CHEST 1V INDICATIONS: chest pain TECHNIQUE: One view of the chest was acquired. COMPARISON: None. FINDINGS: Surgical changes and devices: None. Lungs and pleura: Lungs are clear. No pleural effusions or pneumothorax. Mediastinum: Mediastinal contours appear normal. Heart size is normal. Bones and chest wall: No suspicious bony lesions. Overlying soft tissues appear unremarkable. IMPRESSION: Portable chest within normal limits for age. Approved by: Tim Corrales M.D. on 02/18/2023 at 9:24 ECG Data Interpretation: Normal sinus rhythm rate 67 AK interval 184 QRS [address] changes no T- wave inversions MDM Narrative Medical decision making narrative: Patient 77-year-old male presents today with chest pain ongoing for about a week and a half. 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 It is tender to palpation and reproducible. Blood work has been reviewed overall reassuring negative troponin normal electrolytes no anemia or leukocytosis. Chest x-ray does not show any abnormality or fracture Patient is not wanting any narcotics he is taking Tylenol and ibuprofen for pain but not helping. Offered lidocaine patch which he is willing to try. At this time with reproducible pain I think this is more likely musculoskeletal special after significant manual labor. Unlikely to be acute coronary syndrome. He is low risk heart score. Not having signs or symptoms of a pulmonary embolism although this was also considered. Discharge Plan Departure Patient Disposition: Home Clinical Impression: Acute costochondritis Instructions: Costochondritis Activity Restrictions/Additional Instructions: *You have been diagnosed with costochondritis *What to do: At this time blood work and EKG are overall reassuring. I suspect that you have sprain and inflammation in your ribs causing your pain. *Continue to take medications as directed Tylenol 650 mg every 4-6 hours if needed for [id number] pain Motrin 600 mg every 4 to hours if needed for [id number] Lidocaine patch at area of pain for 12 hours only then remove. *Follow up with your primary care provider in 2-3 days or call [phone] *Return to ER if you should have increasing pain shortness of breath or any new, worsening or concerning symptoms Prescriptions: New lidocaine 5 % adhesive patch,medicated 1 patch topical DAILY PRN (Reason: pain (scale score 7-10)) Qty: 30 0RF Rx Instructions: leave on most painful area for up to 12 hrs No Action epinephrine 0.3 mg/0.3 mL auto-injector 0.3 ml IM ONCE Qty: 1 1RF Rx Instructions: as a single dose; may repeat once sildenafil [Viagra] 100 mg tablet 100 mg PO DAILY PRN (Reason: sexual activity) Qty: 20 1RF Rx Instructions: administer 30 minutes to 4 hours before activity acetaminophen [Tylenol] 325 mg tablet 325 mg PO Q6H PRN (Reason: Pain (Scale Score 4-6)) aspirin [Aspir-81] 81 mg tablet,delayed release (DR/EC) 81 mg PO DAILY ibuprofen [Motrin IB] 200 mg tablet 200 mg PO QID PRN (Reason: Pain (Scale Score 1-3)) vitamin B complex [B Complex-Vitamin B12] PO ascorbic acid (vitamin C) PO cholecalciferol (vitamin D3) PO zinc acetate PO Referrals: Archana Lopez DO [Primary Care Provider] - Stand Alone Forms: Patient Portal/API
[2023-02-18 10:38] LABS: Troponin I < 0.012 ng/mL (0.01-0.034)
[2023-02-18] MEDS: KETOROLAC 30 MG/ML VIAL 15 MG IV (11:24)
== END 2023-02-18 11:47 | disposition home or self-care (01) ==
PROVIDERS: Emergency Provider Emergency Medicine; Family Provider Family Medicine; PCP Family Medicine
DX: M94.0 Chondrocostal junction syndrome [Tietze] (principal); R07.9 Chest pain, unspecified
CPT/HCPCS: 36415; 71045; 80053; 82550; 83690; 83735; 84484; 85025; 85610; 85730; 93005; 93010; 96374; 99284; J1885

== ENCOUNTER → 2023-03-19 07:23 | Outpatient (CLI) | payer MEDICARE, OTHER, SELFPAY ==
--- NOTE | 2023-03-19 07:25 | DI.RAD.S_ITS ---
PROCEDURE: XR THORACIC SPINE 3V INDICATIONS: RIB PAIN TECHNIQUE: 3 views of the thoracic spine were acquired. COMPARISON: None. FINDINGS: Bones: No fractures or dislocations. Mild rightward curvature of lumbar spine with apex at T12 level is seen. Degenerative endplate changes are noted throughout mid to lower thoracic spine. No suspicious bony lesions. 12 pairs of ribs are noted, and appear intact where visualized. Soft tissues: No paravertebral stripe thickening. 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 Mild scoliosis as above. No acute compression fracture or spondylolisthesis. Dictated by: Alan Barnard M.D. on 03/19/2023 at 8:16 Approved by: Alan Barnard M.D. on 03/19/2023 at 8:17
== END ==
PROVIDERS: Family Provider Family Medicine; PCP Family Medicine; Referring Provider Anesthesiology; Visit Provider Anesthesiology
DX: M51.34 Other intervertebral disc degeneration, thoracic region (principal); R07.81 Pleurodynia; M41.9 Scoliosis, unspecified; B02.7 Disseminated zoster; M79.18 Myalgia, other site; B02.29 Other postherpetic nervous system involvement
CPT/HCPCS: 72072; 99214

== ENCOUNTER 2023-05-23 09:45 | Outpatient (RCR) | payer MEDICARE, OTHER, SELFPAY ==
--- NOTE | 2023-04-10 16:38 | PT.OIE ---
Current Diagnoses Other chronic pain (04/10/23) Pain in right shoulder (04/10/23) Pain in left shoulder (04/10/23) Past Medical History (Last Updated 04/09/23 @ 12:04 by Candido Green MD) Actinic keratosis Acute labyrinthitis Basal cell carcinoma of right hand (~2015) Benign prostatic hyperplasia Chicken pox Dupuytren's contracture of hand Eczema Elevated blood pressure reading in office with white coat syndrome, without diagnosis of hypertension Erectile dysfunction Exposure to COVID-19 virus Foot pain (~2015) Headache Hearing loss History of herpes simplex infection Hyperlipidemia Impaired fasting glucose Measles Migraines Mumps Myofascial pain Overweight Peripheral neuropathy (~02/10/19) Peyronie's syndrome Post herpetic neuralgia Restless leg syndrome Shoulder pain Sigmoid diverticulosis Skin cancer (~2017) Thoracic back pain Thoracic spondylosis Tinnitus (~1979) Vision disorder Past Surgical History (Last Reviewed 04/09/23 @ 12:03 by Candido Green MD) Anesthesia History of shoulder surgery (~2010) History of tonsillectomy and adenoidectomy History of tooth extraction Visit Care Team Role Provider Type Divya Young DO Family Provider Physician Specialty: Family Practice Address: [address] [place] [address] Email: [email or web address] Archana Lopez DO Attending Provider Physician Primary Care Provider Referring Provider Specialty: Medical Address: [address] [place] [address], [facility] Email: [email or web address] Physical Therapy Initial Evaluation PT-OP-A Visit Information Start: 04/12/23 07:17 Freq: Status: Active Protocol: Document 04/10/23 14:30 NM (Rec: 04/12/23 07:30 NM [id number]) Out-Patient Physical Therapy Visit Information Visit Information Visit Type Initial Evaluation Visit Start Time 12:15 Visit Stop Time 13:00 Total Visit Minutes 45 Visit Number 1 Evaluation Information Evaluation Date 04/10/23 PT-OP-B Current Condition Start: 04/12/23 07:17 Freq: Status: Active Protocol: Document 04/10/23 14:30 NM (Rec: 04/12/23 07:30 NM [id number]) Current Condition History of Current Condition Onset Date January 2023 Current Complaints pain between scapulae (R>L) History of Current Condition Pt presents to clinic with L thoracic/scapular pain beginning in January 2023. He reports that he was shoveling some dirt over his left shoulder when he felt a sharp pain on his L anterior side of the ribs and between the L scapula/spine. He was referred to the ED where he was dx with costochondritis and set home. He then went on a [address] trip later that week , which caused his pain to worsen. He then developed a rash from some lidocaine patches prescribed in the ED, which led to a dx of shingles along the L anterior chest whcih has since resolved. However, he does report decreased sensation in a thoracic dermatomal pattern in the trunk. He has been seeing Dr. Green for a 3 series injection inot the L periscapular muscles. PT reports previous thoracic spine injury from lifting weights in the . His primary complaint is muscle pain between the L scapula and the thoracic spine. Prior Treatments and Tests Successful PT for similar condition in [id number]. 02/2023 Radiographs: Thoracic spine DDD, mild scoliosis, no acute fracture or spondylolisthesis Treatment Goals Patient/Caregiver Goals Decrease pain between scapulae Prior Functional Status Baseline Function- ADL's Independent Baseline Function- Mobility Independent PT-OP-C Subjective Start: 04/12/23 07:17 Freq: Status: Active Protocol: Document 04/10/23 14:30 NM (Rec: 04/12/23 07:30 NM [id number]) OP-PT Subjective Patient Comments Patient Comments See hx above for pt report Patient Questionnaires Quick Dash- Upper Extremity Quick Dash UE Score 12 (2% disability) PT-OP-E Functional Tests Start: 04/12/23 07:17 Freq: Status: Active Protocol: Document 04/10/23 14:30 NM (Rec: 04/12/23 07:30 NM [id number]) Functional Tests Robbiey's Scratch Test Action 1- Left to opposite shoulder Action 1- Right to opposite shoulder Action 2- Left T4 Action 2- Right T5 Action 3- Left T10 Action 3- Right T8 PT-OP-F Manual Assessment Start: 04/12/23 07:17 Freq: Status: Active Protocol: Document 04/10/23 14:30 NM (Rec: 04/12/23 07:30 NM [id number]) Manual Assessments Soft Tissue Assessment Soft Tissue Mobility Assessment Tenderness and moderate soft tissue restriction of L rhomboids, trapezius muscle, levator scapula, thoracic and cervical paraspinals. Joint Mobility Assessment Joint Mobility Assessment Normal shoulder and rib motion . Thoracic ribs intact and in place. No tenderness or symptom provocation with P-A springing of thoracic spine. Scapulothoracic assessment shows limitations in scapular retraction/protraction and L winging. PT-OP-H Neuro Start: 04/12/23 07:17 Freq: Status: Active Protocol: Document 04/10/23 14:30 NM (Rec: 04/12/23 07:30 NM [id number]) Sensation Evaluation Gross Sensation Gross Sensation Trunk Impaired Sensation Description Paresthesia Comments Summary Comments Reported decreased sensation along thoracic dermatomes on his L side ~T8-T10 Deep Tendon Reflex & Clonus Assessment Deep Tendon Reflex Right Bicep Deep Tendon Reflex 1+ Diminished Left Bicep Deep Tendon Reflex 2+ Normal PT-OP-J Posture/Palpation/Skin Start: 04/12/23 07:17 Freq: Status: Active Protocol: Document 04/10/23 14:30 NM (Rec: 04/12/23 07:30 NM [id number]) Posture Evaluation Position Standing Evaluation View posterior, lateral Head/C-Spine Posture Forward Head T-Spine Posture Increased Kyphosis Thorax Posture (L) Elevated,(L) Prominent L-Spine Posture Neutral Shoulder Posture (L) Rounded,(R) Rounded Shoulder Subluxation Degree (L) 2 Fingers wide,(R) 2 Fingers wide Scapula Posture (L) Protracted,(L) Winged Arm Posture (L) Externally Rotated,(R) Externally Rotated Pelvis Posture Neutral Weight Distribution Balanced Hip Posture (L) Neutral,(R) Neutral Palpation Assessment Location Anterior Trunk Palpation Location pectoralis major and minor Palpation Findings Soft Tissue Tightness, Tenderness Palpation Details Tenderness near clavicle and humeral insertion Thoracic Spine Palpation Location Paraspinals, rhomboids, trapezius Palpation Findings Soft Tissue Tightness,Spasm, Tenderness,Trigger Point Palpation Details Tenderness of rhomboids primarily, followed by trapezius and thoracic erector spinae. L>R tenderness. Trigger points on L rhomboids Skin Assessment Other Assessments Skin Assessment Comments Pt with noticable bruising along B rhomboids (L>R) consistent with trigger point injections. PT-OP-K Range of Motion Start: 04/12/23 07:17 Freq: Status: Active Protocol: Document 04/10/23 14:30 NM (Rec: 04/12/23 07:30 NM [id number]) Cervical Spine Range of Motion Cervical Spine Active Degrees Testing Position Sitting Flexion 60 Extension 60 Rotation Left 80 Rotation Right 65 Lateral Flexion Left 35 Lateral Flexion Right 35 ROM Limitations Soft Tissue Tightness Comments No pain reported Lumbar Spine Range of Motion Lumbar Spine Active Percentage Testing Position Standing Flexion 100 Extension 100 Lateral Flexion Left 100 Lateral Flexion Right 100 ROM Limitations Soft Tissue Tightness Comments L rotation: 9 cm R rotation: 15 cm Shoulder Goniometric Range of Motion Shoulder Left Shoulder ROM WFL Yes Testing Position Standing Comments Shoulder ROM WFL, no pain reported Right Shoulder ROM WFL Yes Testing Position Standing Comments Shoulder ROM WFL, no pain reported PT-OP-L Special Tests Start: 04/12/23 07:17 Freq: Status: Active Protocol: Document 04/10/23 14:30 NM (Rec: 04/12/23 07:30 NM [id number]) Special Tests Cervical Spine Special Tests Traction Test Results negative Spurling's Test Test Results negative Shoulder Special Tests Pectoralis Muscle Length Test Comments R: 7 cm off table L: 13 cm off table Arms at 120 deg abd + ER (arms behind head) PT-OP-M Strength Start: 04/12/23 07:17 Freq: Status: Active Protocol: Document 04/10/23 14:30 NM (Rec: 04/12/23 07:30 NM [id number]) Scapula Strength Scapula Manual Muscle Testing Right Elevation (C4) 4 Good Adduction 4 Good Abduction 4 Good Depression 4 Good Comments No pain reported Lower trap: 4/5 Middle trap: 4/5 Rhomboid: 4/5 Serratus Anterior: 4/5 Left Elevation (C4) 4 Good Adduction 4 Good Abduction 4 Good Depression 4 Good Comments Minimal pain reported with resisted lower/middle trapezius, rhomboid No pain with resisted serratus anterior muscle test (4/5) Lower trap: 4/5 Middle trap: 4/5 Rhomboid: 4/5 Serratus Anterior: 4/5 Shoulder Strength Shoulder Manual Muscle Testing Right Flexion 5 Normal Extension 5 Normal Abduction (C5) 5 Normal Adduction 5 Normal External Rotation 5 Normal Internal Rotation 5 Normal Horizontal Abduction 5 Normal Horizontal Adduction 5 Normal Comments Does not reproduce pain Left Flexion 5 Normal Extension 5 Normal Abduction (C5) 5 Normal Adduction 5 Normal External Rotation 5 Normal Internal Rotation 5 Normal Horizontal Abduction 5 Normal Horizontal Adduction 5 Normal Comments Does not reproduce pain PT-OP-Q Treatments Start: 04/12/23 07:17 Freq: Status: Active Protocol: Document 04/10/23 14:30 NM (Rec: 04/12/23 07:30 NM [id number]) Therapeutic Exercises Standing Exercises Self mobilization Standing Exercise Name upper trap, rhomboids, levator scapula Side bilateral Equipment Used small racquetball Reps/Minutes 2 min (10 sec on tender points ) Comments pt reports pain relief; HEP PT-OP-T Assessment and Plan Start: 04/12/23 07:17 Freq: Status: Active Protocol: Document 04/10/23 14:30 NM (Rec: 04/12/23 07:30 NM [id number]) Physical Therapy Assessment Rehab Potential Rehabilitation Potential Good Evaluation Complexity Number of Personal Factors/Comorbidities 3 or More Number of Body Systems Impaired 1-2 Clinical Presentation at Evaluation Stable Impairments Impairments Activity Tolerance,Functional Activities,Functional Mobility ,Integument,Pain,Posture,ROM, Sensation,Soft Tissue Mobility ,Strength Goals Five Impairment function Impairment Current pain 3/10 Returned Goods Inspector Goal (LTG) Pt will report pain of 3/10 or less with ADLs in order to demo improved QOL and activity tolerance. LTG Duration 6 weeks Four Impairment strength Impairment periscapular strength globally 4/5 MMT Returned Goods Inspector Goal (LTG) Pt will improve global B scapular muscle strength to at least 4+/5 for improved postural and scapular control and to decrease pain symptoms. LTG Duration 6 weeks Three Impairment muscle length Impairment Pectoralis muscle Length L side 13 cm, R side 7 cm Half-Way Goal (LTG) Pt will demo improved posture while sitting and standing in addition to decrease the strain on his periscapular muscles by decreasing the muscle length measurement of his L pectoralis major by at least 5 cm to be comparable to his R pectoralis major measurement. LTG Duration 6 weeks Two Impairment ROM Impairment Thoracic spine rotation R 15 cm, L 9 cm Half-Way Goal (LTG) Pt will improve L thoracic spine rotation ROM to be within 3 cm of R thoracic rotation ROM for improved spinal mobility during ADLs/ IADLs like shoveling and gardening. LTG Duration 6 weeks One Impairment ROM Impairment C spine R rotation 65 deg Short Term Goal (STG) Pt will improve R cervical spine rotation ROM by at least 5 deg for improved visual scanning during driving. STG Duration 3 weeks Returned Goods Inspector Goal (LTG) Pt will improve R cervical spine rotation ROM to within 5 deg of his L rotation measurement for improved visual scanning during driving . LTG Duration 6 weeks Assessment Summary Assessment Pt is a 77 y.o. male presenting to clinic with pain between the B scapula and thoracic spine (L>R), consistent with muscle strain. Cervical spine tests are negative. He does not have any tenderness for palpation along the thoracic and cervical vertebrae; however he does have moderate soft tissue limitations in his B trapezius, rhomboids, pectoralis major, and paraspinals. Pt has limitations only in cervical and thoracic spine rotation ROM. B shoulder strength is normal, but L scapula is winging and he has decreased periscapular strength (4/5). No atrophy noted along scapula , paraspinals, or thorax. Posturally, his L shoulder is more elevated and more forward than his R shoulder. Pt would benefit from skilled PT to address impairments in scapular strength and mobility , cervical and thoracic spine ROM, soft tissue restrictions, and postural education in order to decrease symptoms, improve QOL, and return to PLOF. Physical Therapy Plan Frequency and Duration Frequency of Treatment 1x/Week Duration of treatment (weeks) 6 Plan of Care Start Date 04/10/23 Plan of Care End Date 05/22/23 Therapeutic Interventions Therapeutic Interventions Home Exercise Program,Joint Mobilizations,Manual Therapy, Neuromuscular Re-education, Patient/Caregiver Education, Self-Care/Home Management, Sensory Integration,Soft Tissue Mobilization,Taping, Therapeutic Activities, Therapeutic Exercises Modalities Biofeedback,Cold Pack/Ice Massage,Electric Stimulation, Hot Packs,Iontophoresis, Ultrasound,Vasopneumatic Devices Next Visit Focus/Plan Next Note Type Treatment Note Next Visit Plan Initiate strengthening of periscapular muscles, shoulder /T spine mobility
--- NOTE | 2023-04-10 16:39 | PT.OPPOC ---
Physical, Occupational & Speech Therapy At [facility] Current Diagnoses Other chronic pain (04/10/23) Pain in right shoulder (04/10/23) Pain in left shoulder (04/10/23) Visit Care Team Role Provider Type Divya Young DO Family Provider Physician Specialty: Family Practice Address: [address] [place] [address], [id number] Email: [email or web address] Lopez DO Attending Provider Physician Primary Care Provider Referring Provider Specialty: Medical Address: [address] [place] [address], [place] [address], [place], [address] Email: [email or web address] Plan Of Care PT-OP-T Assessment and Plan Start: 04/12/23 07:17 Freq: Status: Active Protocol: Document 04/10/23 14:30 NM (Rec: 04/12/23 07:30 NM [id number]) Physical Therapy Assessment Rehab Potential Rehabilitation Potential Good Evaluation Complexity Number of Personal Factors/Comorbidities 3 or More Number of Body Systems Impaired 1-2 Clinical Presentation at Evaluation Stable Impairments Impairments Activity Tolerance,Functional Activities,Functional Mobility ,Integument,Pain,Posture,ROM, Sensation,Soft Tissue Mobility ,Strength Goals Five Impairment function Impairment Current pain 3/10 Snf Goal (LTG) Pt will report pain of 3/10 or less with ADLs in order to demo improved QOL and activity tolerance. LTG Duration 6 weeks Four Impairment strength Impairment periscapular strength globally 4/5 MMT Tooth Clerk Goal (LTG) Pt will improve global B scapular muscle strength to at least 4+/5 for improved postural and scapular control and to decrease pain symptoms. LTG Duration 6 weeks Three Impairment muscle length Impairment Pectoralis muscle Length L side 13 cm, R side 7 cm Tooth Clerk Goal (LTG) Pt will demo improved posture while sitting and standing in addition to decrease the strain on his periscapular muscles by decreasing the muscle length measurement of his L pectoralis major by at least 5 cm to be comparable to his R pectoralis major measurement. LTG Duration 6 weeks Two Impairment ROM Impairment Thoracic spine rotation R 15 cm, L 9 cm Tooth Clerk Goal (LTG) Pt will improve L thoracic spine rotation ROM to be within 3 cm of R thoracic rotation ROM for improved spinal mobility during ADLs/ IADLs like shoveling and gardening. LTG Duration 6 weeks One Impairment ROM Impairment C spine R rotation 65 deg Short Term Goal (STG) Pt will improve R cervical spine rotation ROM by at least 5 deg for improved visual scanning during driving. STG Duration 3 weeks Tooth Clerk Goal (LTG) Pt will improve R cervical spine rotation ROM to within 5 deg of his L rotation measurement for improved visual scanning during driving . LTG Duration 6 weeks Assessment Summary Assessment Pt is a 77 y.o. male presenting to clinic with pain between the B scapula and thoracic spine (L>R), consistent with muscle strain. Cervical spine tests are negative. He does not have any tenderness for palpation along the thoracic and cervical vertebrae; however he does have moderate soft tissue limitations in his B trapezius, rhomboids, pectoralis major, and paraspinals. Pt has limitations only in cervical and thoracic spine rotation ROM. B shoulder strength is normal, but L scapula is winging and he has decreased periscapular strength (4/5). No atrophy noted along scapula , paraspinals, or thorax. Posturally, his L shoulder is more elevated and more forward than his R shoulder. Pt would benefit from skilled PT to address impairments in scapular strength and mobility , cervical and thoracic spine ROM, soft tissue restrictions, and postural education in order to decrease symptoms, improve QOL, and return to PLOF. Physical Therapy Plan Frequency and Duration Frequency of Treatment 1x/Week Duration of treatment (weeks) 6 Plan of Care Start Date 04/10/23 Plan of Care End Date 05/22/23 Therapeutic Interventions Therapeutic Interventions Home Exercise Program,Joint Mobilizations,Manual Therapy, Neuromuscular Re-education, Patient/Caregiver Education, Self-Care/Home Management, Sensory Integration,Soft Tissue Mobilization,Taping, Therapeutic Activities, Therapeutic Exercises Modalities Biofeedback,Cold Pack/Ice Massage,Electric Stimulation, Hot Packs,Iontophoresis, Ultrasound,Vasopneumatic Devices Next Visit Focus/Plan Next Note Type Treatment Note Next Visit Plan Initiate strengthening of periscapular muscles, shoulder /T spine mobility Plan of Care Dates Plan of Care Start Date 04/10/23 Plan of Care End Date 05/22/23 Electronically Signed by: Juliane Rollins, PT 04/12/23 1876 If you are in agreement with this Plan of Care, please return a signed and dated copy. I have reviewed this Plan of Care and certify that the skilled therapy services above are required to meet the patient?s needs. Physician Signature Date Printed Name and Credentials Clinical Instructor Signature Printed Name and Credentials
--- NOTE | 2023-04-18 15:53 | PT.OTN ---
Current Diagnoses Other chronic pain (04/18/23) Pain in right shoulder (04/18/23) Pain in left shoulder (04/18/23) Physical Therapy Treatment Note PT-OP-A Visit Information Start: 04/12/23 07:17 Freq: Status: Active Protocol: Document 04/18/23 13:03 NM (Rec: 04/18/23 13:43 NM [id number]) Out-Patient Physical Therapy Visit Information Visit Information Visit Type Treatment Note Visit Note KX required after 19th visit/ yr Visit Start Time 13:00 Visit Stop Time 13:45 Total Visit Minutes 45 Visit Number 2 Evaluation Information Evaluation Date 04/10/23 PT-OP-B Current Condition Start: 04/12/23 07:17 Freq: Status: Active Protocol: Document 04/10/23 14:30 NM (Rec: 04/12/23 07:30 NM [id number]) Current Condition History of Current Condition Onset Date January 2023 Current Complaints pain between scapulae (R>L) History of Current Condition Pt presents to clinic with L thoracic/scapular pain beginning in January 2023. He reports that he was shoveling some dirt over his left shoulder when he felt a sharp pain on his L anterior side of the ribs and between the L scapula/spine. He was referred to the ED where he was dx with costochondritis and set home. He then went on a [address] trip later that week , which caused his pain to worsen. He then developed a rash from some lidocaine patches prescribed in the ED, which led to a dx of shingles along the L anterior chest whcih has since resolved. However, he does report decreased sensation in a thoracic dermatomal pattern in the trunk. He has been seeing Dr. Green for a 3 series injection inot the L periscapular muscles. PT reports previous thoracic spine injury from lifting weights in the . His primary complaint is muscle pain between the L scapula and the thoracic spine. Prior Treatments and Tests Successful PT for similar condition in [id number]. 02/2023 Radiographs: Thoracic spine DDD, mild scoliosis, no acute fracture or spondylolisthesis Treatment Goals Patient/Caregiver Goals Decrease pain between scapulae Prior Functional Status Baseline Function- ADL's Independent Baseline Function- Mobility Independent PT-OP-C Subjective Start: 04/12/23 07:17 Freq: Status: Active Protocol: Document 04/18/23 13:03 NM (Rec: 04/18/23 13:43 NM [id number]) OP-PT Subjective Patient Comments Patient Comments Pt reports 1/10 pain between L scapula. He had the trigger point injection injection series on Sunday. His gabapentin for nerve pain dosage was increased to 200 mg . PT-OP-E Functional Tests Start: 04/12/23 07:17 Freq: Status: Active Protocol: Document 04/10/23 14:30 NM (Rec: 04/12/23 07:30 NM [id number]) Functional Tests Apley's Scratch Test Action 1- Left to opposite shoulder Action 1- Right to opposite shoulder Action 2- Left T4 Action 2- Right T5 Action 3- Left T10 Action 3- Right T8 PT-OP-F Manual Assessment Start: 04/12/23 07:17 Freq: Status: Active Protocol: Document 04/10/23 14:30 NM (Rec: 04/12/23 07:30 NM [id number]) Manual Assessments Soft Tissue Assessment Soft Tissue Mobility Assessment Tenderness and moderate soft tissue restriction of L rhomboids, trapezius muscle, levator scapula, thoracic and cervical paraspinals. Joint Mobility Assessment Joint Mobility Assessment Normal shoulder and rib motion . Thoracic ribs intact and in place. No tenderness or symptom provocation with P-A springing of thoracic spine. Scapulothoracic assessment shows limitations in scapular retraction/protraction and L winging. PT-OP-H Neuro Start: 04/12/23 07:17 Freq: Status: Active Protocol: Document 04/10/23 14:30 NM (Rec: 04/12/23 07:30 NM [id number]) Sensation Evaluation Gross Sensation Gross Sensation Trunk Impaired Sensation Description Paresthesia Comments Summary Comments Reported decreased sensation along thoracic dermatomes on his L side ~T8-T10 Deep Tendon Reflex & Clonus Assessment Deep Tendon Reflex Right Bicep Deep Tendon Reflex 1+ Diminished Left Bicep Deep Tendon Reflex 2+ Normal PT-OP-J Posture/Palpation/Skin Start: 04/12/23 07:17 Freq: Status: Active Protocol: Document 04/10/23 14:30 NM (Rec: 04/12/23 07:30 NM [id number]) Posture Evaluation Position Standing Evaluation View posterior, lateral Head/C-Spine Posture Forward Head T-Spine Posture Increased Kyphosis Thorax Posture (L) Elevated,(L) Prominent L-Spine Posture Neutral Shoulder Posture (L) Rounded,(R) Rounded Shoulder Subluxation Degree (L) 2 Fingers wide,(R) 2 Fingers wide Scapula Posture (L) Protracted,(L) Winged Arm Posture (L) Externally Rotated,(R) Externally Rotated Pelvis Posture Neutral Weight Distribution Balanced Hip Posture (L) Neutral,(R) Neutral Palpation Assessment Location Anterior Trunk Palpation Location pectoralis major and minor Palpation Findings Soft Tissue Tightness, Tenderness Palpation Details Tenderness near clavicle and humeral insertion Thoracic Spine Palpation Location Paraspinals, rhomboids, trapezius Palpation Findings Soft Tissue Tightness,Spasm, Tenderness,Trigger Point Palpation Details Tenderness of rhomboids primarily, followed by trapezius and thoracic erector spinae. L>R tenderness. Trigger points on L rhomboids Skin Assessment Other Assessments Skin Assessment Comments Pt with noticable bruising along B rhomboids (L>R) consistent with trigger point injections. PT-OP-K Range of Motion Start: 04/12/23 07:17 Freq: Status: Active Protocol: Document 04/10/23 14:30 NM (Rec: 04/12/23 07:30 NM [id number]) Cervical Spine Range of Motion Cervical Spine Active Degrees Testing Position Sitting Flexion 60 Extension 60 Rotation Left 80 Rotation Right 65 Lateral Flexion Left 35 Lateral Flexion Right 35 ROM Limitations Soft Tissue Tightness Comments No pain reported Lumbar Spine Range of Motion Lumbar Spine Active Percentage Testing Position Standing Flexion 100 Extension 100 Lateral Flexion Left 100 Lateral Flexion Right 100 ROM Limitations Soft Tissue Tightness Comments L rotation: 9 cm R rotation: 15 cm Shoulder Goniometric Range of Motion Shoulder Left Shoulder ROM WFL Yes Testing Position Standing Comments Shoulder ROM WFL, no pain reported Right Shoulder ROM WFL Yes Testing Position Standing Comments Shoulder ROM WFL, no pain reported PT-OP-L Special Tests Start: 04/12/23 07:17 Freq: Status: Active Protocol: Document 04/10/23 14:30 NM (Rec: 04/12/23 07:30 NM [id number]) Special Tests Cervical Spine Special Tests Traction Test Results negative Spurling's Test Test Results negative Shoulder Special Tests Pectoralis Muscle Length Test Comments R: 7 cm off table L: 13 cm off table Arms at 120 deg abd + ER (arms behind head) PT-OP-M Strength Start: 04/12/23 07:17 Freq: Status: Active Protocol: Document 04/10/23 14:30 NM (Rec: 04/12/23 07:30 NM [id number]) Scapula Strength Scapula Manual Muscle Testing Right Elevation (C4) 4 Good Adduction 4 Good Abduction 4 Good Depression 4 Good Comments No pain reported Lower trap: 4/5 Middle trap: 4/5 Rhomboid: 4/5 Serratus Anterior: 4/5 Left Elevation (C4) 4 Good Adduction 4 Good Abduction 4 Good Depression 4 Good Comments Minimal pain reported with resisted lower/middle trapezius, rhomboid No pain with resisted serratus anterior muscle test (4/5) Lower trap: 4/5 Middle trap: 4/5 Rhomboid: 4/5 Serratus Anterior: 4/5 Shoulder Strength Shoulder Manual Muscle Testing Right Flexion 5 Normal Extension 5 Normal Abduction (C5) 5 Normal Adduction 5 Normal External Rotation 5 Normal Internal Rotation 5 Normal Horizontal Abduction 5 Normal Horizontal Adduction 5 Normal Comments Does not reproduce pain Left Flexion 5 Normal Extension 5 Normal Abduction (C5) 5 Normal Adduction 5 Normal External Rotation 5 Normal Internal Rotation 5 Normal Horizontal Abduction 5 Normal Horizontal Adduction 5 Normal Comments Does not reproduce pain PT-OP-Q Treatments Start: 04/12/23 07:17 Freq: Status: Active Protocol: Document 04/18/23 13:03 NM (Rec: 04/18/23 13:43 NM [id number]) Therapeutic Exercises Supine Exercises Foam Roller Supine Exercise Name 1. pec stretch, 2. snow angels , 3. thoracic ext Side bilateral Equipment Used 1/2 foam roller Reps/Minutes 1. 1x60, 2. 1x20, 3. 1x20 Comments cues for correct execution Prone Exercises IYTW Prone Exercise Name added to HEP; Y performed on wall Side bilateral Reps/Minutes 1x10x2 Comments cues for scap setting stabilization and retraction Sidelying Exercises Open books Side bilateral Reps/Minutes 1x10 ea side Comments cues to follow hand with eyes, max ROM within pain free range Standing Exercises Y lift off Standing Exercise Name for lower trap activation Side bilateral Reps/Minutes 1x10x2 Comments cues for correct execution; unable to perform in prone Manual Therapy Treatment Soft Tissue Mobilization L scapula Body Location rhomboids, levator scap Mobilization Type Cross-Friction,Myofascial Release,Sustained Pressure, Trigger Point Release Intensity/Depth Moderate Body Position Sidelying Comments Tenderness and trigger point L rhomboid, spasms with palpation. Sustained pressure on trigger point, able to relax muscle and decrease tenderness at trigger point. Joint Mobilizations scapulothoracic Joint R and L sides Direction upwd/dnwd rotation, protraction/retraction, elevation/depression Grade III Body Position Sidelying Reps/Duration 6x30 ea side Comments Mobilization with movement: scap protraction 1x10 with serratus punch, then retraction. Abduction 1x10 with upward/downward rotation Self-Care/Home Management Treatment Education Patient Education Home Exercise Program,Posture Other Education HO issued regarding sitting posture, ergonomics PT-OP-T Assessment and Plan Start: 04/12/23 07:17 Freq: Status: Active Protocol: Document 04/18/23 13:03 NM (Rec: 04/18/23 13:43 NM [id number]) Physical Therapy Assessment Goals Five Impairment function Impairment Current pain 3/10 Fpc Goal (LTG) Pt will report pain of 3/10 or less with ADLs in order to demo improved QOL and activity tolerance. LTG Duration 6 weeks Four Impairment strength Impairment periscapular strength globally 4/5 MMT Fpc Goal (LTG) Pt will improve global B scapular muscle strength to at least 4+/5 for improved postural and scapular control and to decrease pain symptoms. LTG Duration 6 weeks Three Impairment muscle length Impairment Pectoralis muscle Length L side 13 cm, R side 7 cm Certified Green Building Engineer Goal (LTG) Pt will demo improved posture while sitting and standing in addition to decrease the strain on his periscapular muscles by decreasing the muscle length measurement of his L pectoralis major by at least 5 cm to be comparable to his R pectoralis major measurement. LTG Duration 6 weeks Two Impairment ROM Impairment Thoracic spine rotation R 15 cm, L 9 cm Certified Green Building Engineer Goal (LTG) Pt will improve L thoracic spine rotation ROM to be within 3 cm of R thoracic rotation ROM for improved spinal mobility during ADLs/ IADLs like shoveling and gardening. LTG Duration 6 weeks One Impairment ROM Impairment C spine R rotation 65 deg Short Term Goal (STG) Pt will improve R cervical spine rotation ROM by at least 5 deg for improved visual scanning during driving. STG Duration 3 weeks Certified Green Building Engineer Goal (LTG) Pt will improve R cervical spine rotation ROM to within 5 deg of his L rotation measurement for improved visual scanning during driving . LTG Duration 6 weeks Assessment Summary Assessment Tmt focus on thoracic mobility , periscapular strengthening. Initiated pec stretch, thoracic ext, open books, and snow angels to address forward trunk posture and improve overall thoracic mobility while also mobilizing B scapula. Also initiated prone I/W/T for periscapular strengthening to improve scapular muscle mobilization. Pt unable to perform prone Y but is able to perform while standing at wall. He requires cues for correct execution, scapular setting and scapular retraction. Pt educated and provided handout on sitting posture, ergonomics while working on computer/driving. HEP also issued: foam roller pec stretch/snow kerri/ thoracic ext, open book, prone W/T/I. Pt would benefit from skilled PT to address impairments in periscapular and scapular strength, thoracic and scapular mobility , postural education, and muscle endurance in order to improve overall BUE activity tolerance and decrease pain symptoms. Physical Therapy Plan Frequency and Duration Frequency of Treatment 1x/Week Duration of treatment (weeks) 6 Plan of Care Start Date 04/10/23 Plan of Care End Date 05/22/23 Therapeutic Interventions Therapeutic Interventions Home Exercise Program,Joint Mobilizations,Manual Therapy, Neuromuscular Re-education, Patient/Caregiver Education, Self-Care/Home Management, Sensory Integration,Soft Tissue Mobilization,Taping, Therapeutic Activities, Therapeutic Exercises Modalities Biofeedback,Cold Pack/Ice Massage,Electric Stimulation, Hot Packs,Iontophoresis, Ultrasound,Vasopneumatic Devices Next Visit Focus/Plan Next Note Type Treatment Note Next Visit Plan Continue strengthening of periscapular muscles, B ER. Progress to wall exercises, rows, theraband, trial shoulder ext/fly. Continue with shoulder/T spine mobility
--- NOTE | 2023-04-24 11:20 | PT.OTN ---
Current Diagnoses Other chronic pain (04/24/23) Pain in right shoulder (04/24/23) Pain in left shoulder (04/24/23) Physical Therapy Treatment Note PT-OP-A Visit Information Start: 04/12/23 07:17 Freq: Status: Active Protocol: Document 04/24/23 09:46 NM (Rec: 04/24/23 10:32 NM [id number]) Out-Patient Physical Therapy Visit Information Visit Information Visit Type Treatment Note Visit Note KX required after 19th visit/ yr Visit Start Time 09:45 Visit Stop Time 10:20 Total Visit Minutes 35 Visit Number 3 Evaluation Information Evaluation Date 04/10/23 PT-OP-B Current Condition Start: 04/12/23 07:17 Freq: Status: Active Protocol: Document 04/10/23 14:30 NM (Rec: 04/12/23 07:30 NM [id number]) Current Condition History of Current Condition Onset Date January 2023 Current Complaints pain between scapulae (R>L) History of Current Condition Pt presents to clinic with L thoracic/scapular pain beginning in January 2023. He reports that he was shoveling some dirt over his left shoulder when he felt a sharp pain on his L anterior side of the ribs and between the L scapula/spine. He was referred to the ED where he was dx with costochondritis and set home. He then went on a [address] trip later that week , which caused his pain to worsen. He then developed a rash from some lidocaine patches prescribed in the ED, which led to a dx of shingles along the L anterior chest whcih has since resolved. However, he does report decreased sensation in a thoracic dermatomal pattern in the trunk. He has been seeing Dr. Green for a 3 series injection inot the L periscapular muscles. PT reports previous thoracic spine injury from lifting weights in the . His primary complaint is muscle pain between the L scapula and the thoracic spine. Prior Treatments and Tests Successful PT for similar condition in [id number]. 02/2023 Radiographs: Thoracic spine DDD, mild scoliosis, no acute fracture or spondylolisthesis Treatment Goals Patient/Caregiver Goals Decrease pain between scapulae Prior Functional Status Baseline Function- ADL's Independent Baseline Function- Mobility Independent PT-OP-C Subjective Start: 04/12/23 07:17 Freq: Status: Active Protocol: Document 04/24/23 09:46 NM (Rec: 04/24/23 10:32 NM [id number]) OP-PT Subjective Patient Comments Patient Comments Pt reports 0-1/10 L scapula pain along medial border. He has not had any injections since last visit or changes in medication. He reports compliance with his exercises and order a foam roller. PT-OP-E Functional Tests Start: 04/12/23 07:17 Freq: Status: Active Protocol: Document 04/10/23 14:30 NM (Rec: 04/12/23 07:30 NM [id number]) Functional Tests Apley's Scratch Test Action 1- Left to opposite shoulder Action 1- Right to opposite shoulder Action 2- Left T4 Action 2- Right T5 Action 3- Left T10 Action 3- Right T8 PT-OP-F Manual Assessment Start: 04/12/23 07:17 Freq: Status: Active Protocol: Document 04/10/23 14:30 NM (Rec: 04/12/23 07:30 NM [id number]) Manual Assessments Soft Tissue Assessment Soft Tissue Mobility Assessment Tenderness and moderate soft tissue restriction of L rhomboids, trapezius muscle, levator scapula, thoracic and cervical paraspinals. Joint Mobility Assessment Joint Mobility Assessment Normal shoulder and rib motion . Thoracic ribs intact and in place. No tenderness or symptom provocation with P-A springing of thoracic spine. Scapulothoracic assessment shows limitations in scapular retraction/protraction and L winging. PT-OP-H Neuro Start: 04/12/23 07:17 Freq: Status: Active Protocol: Document 04/10/23 14:30 NM (Rec: 04/12/23 07:30 NM [id number]) Sensation Evaluation Gross Sensation Gross Sensation Trunk Impaired Sensation Description Paresthesia Comments Summary Comments Reported decreased sensation along thoracic dermatomes on his L side ~T8-T10 Deep Tendon Reflex & Clonus Assessment Deep Tendon Reflex Right Bicep Deep Tendon Reflex 1+ Diminished Left Bicep Deep Tendon Reflex 2+ Normal PT-OP-J Posture/Palpation/Skin Start: 04/12/23 07:17 Freq: Status: Active Protocol: Document 04/10/23 14:30 NM (Rec: 04/12/23 07:30 NM [id number]) Posture Evaluation Position Standing Evaluation View posterior, lateral Head/C-Spine Posture Forward Head T-Spine Posture Increased Kyphosis Thorax Posture (L) Elevated,(L) Prominent L-Spine Posture Neutral Shoulder Posture (L) Rounded,(R) Rounded Shoulder Subluxation Degree (L) 2 Fingers wide,(R) 2 Fingers wide Scapula Posture (L) Protracted,(L) Winged Arm Posture (L) Externally Rotated,(R) Externally Rotated Pelvis Posture Neutral Weight Distribution Balanced Hip Posture (L) Neutral,(R) Neutral Palpation Assessment Location Anterior Trunk Palpation Location pectoralis major and minor Palpation Findings Soft Tissue Tightness, Tenderness Palpation Details Tenderness near clavicle and humeral insertion Thoracic Spine Palpation Location Paraspinals, rhomboids, trapezius Palpation Findings Soft Tissue Tightness,Spasm, Tenderness,Trigger Point Palpation Details Tenderness of rhomboids primarily, followed by trapezius and thoracic erector spinae. L>R tenderness. Trigger points on L rhomboids Skin Assessment Other Assessments Skin Assessment Comments Pt with noticable bruising along B rhomboids (L>R) consistent with trigger point injections. PT-OP-K Range of Motion Start: 04/12/23 07:17 Freq: Status: Active Protocol: Document 04/10/23 14:30 NM (Rec: 04/12/23 07:30 NM [id number]) Cervical Spine Range of Motion Cervical Spine Active Degrees Testing Position Sitting Flexion 60 Extension 60 Rotation Left 80 Rotation Right 65 Lateral Flexion Left 35 Lateral Flexion Right 35 ROM Limitations Soft Tissue Tightness Comments No pain reported Lumbar Spine Range of Motion Lumbar Spine Active Percentage Testing Position Standing Flexion 100 Extension 100 Lateral Flexion Left 100 Lateral Flexion Right 100 ROM Limitations Soft Tissue Tightness Comments L rotation: 9 cm R rotation: 15 cm Shoulder Goniometric Range of Motion Shoulder Left Shoulder ROM WFL Yes Testing Position Standing Comments Shoulder ROM WFL, no pain reported Right Shoulder ROM WFL Yes Testing Position Standing Comments Shoulder ROM WFL, no pain reported PT-OP-L Special Tests Start: 04/12/23 07:17 Freq: Status: Active Protocol: Document 04/10/23 14:30 NM (Rec: 04/12/23 07:30 NM [id number]) Special Tests Cervical Spine Special Tests Traction Test Results negative Spurling's Test Test Results negative Shoulder Special Tests Pectoralis Muscle Length Test Comments R: 7 cm off table L: 13 cm off table Arms at 120 deg abd + ER (arms behind head) PT-OP-M Strength Start: 04/12/23 07:17 Freq: Status: Active Protocol: Document 04/10/23 14:30 NM (Rec: 04/12/23 07:30 NM [id number]) Scapula Strength Scapula Manual Muscle Testing Right Elevation (C4) 4 Good Adduction 4 Good Abduction 4 Good Depression 4 Good Comments No pain reported Lower trap: 4/5 Middle trap: 4/5 Rhomboid: 4/5 Serratus Anterior: 4/5 Left Elevation (C4) 4 Good Adduction 4 Good Abduction 4 Good Depression 4 Good Comments Minimal pain reported with resisted lower/middle trapezius, rhomboid No pain with resisted serratus anterior muscle test (4/5) Lower trap: 4/5 Middle trap: 4/5 Rhomboid: 4/5 Serratus Anterior: 4/5 Shoulder Strength Shoulder Manual Muscle Testing Right Flexion 5 Normal Extension 5 Normal Abduction (C5) 5 Normal Adduction 5 Normal External Rotation 5 Normal Internal Rotation 5 Normal Horizontal Abduction 5 Normal Horizontal Adduction 5 Normal Comments Does not reproduce pain Left Flexion 5 Normal Extension 5 Normal Abduction (C5) 5 Normal Adduction 5 Normal External Rotation 5 Normal Internal Rotation 5 Normal Horizontal Abduction 5 Normal Horizontal Adduction 5 Normal Comments Does not reproduce pain PT-OP-Q Treatments Start: 04/12/23 07:17 Freq: Status: Active Protocol: Document 04/24/23 09:46 NM (Rec: 04/24/23 10:32 NM [id number]) Therapeutic Exercises Standing Exercises Serratus Wall slide Standing Exercise Name for serratus activation Side bilateral Resistance tonto apache green tb around forearms Reps/Minutes 2x10 ea Comments cues for forearm alignment, cues for correct execution, push into wall Pec stretch Standing Exercise Name arms 90/90 Side bilateral Equipment Used doorway Reps/Minutes 2x30 Comments no stepping through for increased stretch Snow kerri Standing Exercise Name Trialed, but pt reported pain near pec major/humerus so d/c Y lift off Standing Exercise Name for lower trap activation Side bilateral Reps/Minutes 1x10x5 Comments no pain reported PT-OP-T Assessment and Plan Start: 04/12/23 07:17 Freq: Status: Active Protocol: Document 04/24/23 09:46 NM (Rec: 04/24/23 10:32 NM [id number]) Physical Therapy Assessment Goals Five Impairment function Impairment Current pain 3/10 Gunner'S Mate G Goal (LTG) Pt will report pain of 3/10 or less with ADLs in order to demo improved QOL and activity tolerance. LTG Duration 6 weeks Four Impairment strength Impairment periscapular strength globally 4/5 MMT Gunner'S Mate G Goal (LTG) Pt will improve global B scapular muscle strength to at least 4+/5 for improved postural and scapular control and to decrease pain symptoms. LTG Duration 6 weeks Three Impairment muscle length Impairment Pectoralis muscle Length L side 13 cm, R side 7 cm Alf Goal (LTG) Pt will demo improved posture while sitting and standing in addition to decrease the strain on his periscapular muscles by decreasing the muscle length measurement of his L pectoralis major by at least 5 cm to be comparable to his R pectoralis major measurement. LTG Duration 6 weeks Two Impairment ROM Impairment Thoracic spine rotation R 15 cm, L 9 cm Alf Goal (LTG) Pt will improve L thoracic spine rotation ROM to be within 3 cm of R thoracic rotation ROM for improved spinal mobility during ADLs/ IADLs like shoveling and gardening. LTG Duration 6 weeks One Impairment ROM Impairment C spine R rotation 65 deg Short Term Goal (STG) Pt will improve R cervical spine rotation ROM by at least 5 deg for improved visual scanning during driving. STG Duration 3 weeks Alf Goal (LTG) Pt will improve R cervical spine rotation ROM to within 5 deg of his L rotation measurement for improved visual scanning during driving . LTG Duration 6 weeks Assessment Summary Assessment Tmt focus on stretching pec muscles and periscapular strengthening. Cued pt to remain pain-free during pec stretch, d/c wtih snow angels on wall as pt reports too aggressive of a stretch on pectoralis muscles even with modification. Pt educated on not pushing through increased pain to prevent worsening symptoms. Continued with lower /middle trap strengthening and serratus activation for improved scapular strengthening. In next session , will focus on periscapular and chest strengthening, rib/ cervical spine mobility. After serratus wall slides, pt reported dizziness, diaphoresis, stating he needed to rest; no chest pain, arm pain, jaw pain, or shortness of breath. Seated vitals were 148/94 mmHg, 97% O2 sat, and 66 bpm. With rest, pt vitals were 152/96 mmHg, 97% and 66 bpm. Pt reports resolution of all symptoms after rest; however, he also reports that this is not his normal and he is not on any blood pressure medications. PT terminated session at that time and encouraged pt to follow up with PCP regarding BP. PT also educated pt on going to ED if symptoms return or worsen, especially without exertion. Will continue to monitor in future sessions. Pt would benefit from skilled PT address limitations in rib and cervical spine mobility, periscapular and chest strengthening, and postural correction for improved activity tolerance, ADL tolerance, improved symptom management and QOL. Physical Therapy Plan Frequency and Duration Frequency of Treatment 1x/Week Duration of treatment (weeks) 6 Plan of Care Start Date 04/10/23 Plan of Care End Date 05/22/23 Therapeutic Interventions Therapeutic Interventions Home Exercise Program,Joint Mobilizations,Manual Therapy, Neuromuscular Re-education, Patient/Caregiver Education, Self-Care/Home Management, Sensory Integration,Soft Tissue Mobilization,Taping, Therapeutic Activities, Therapeutic Exercises Modalities Biofeedback,Cold Pack/Ice Massage,Electric Stimulation, Hot Packs,Iontophoresis, Ultrasound,Vasopneumatic Devices Next Visit Focus/Plan Next Note Type Treatment Note Next Visit Plan Continue strengthening of periscapular muscles, B ER. Progress to wall exercises, rows, theraband, trial shoulder ext/fly. Continue with c spine/shoulder/T spine mobility. Trial quad thoracic rot (thread needle), rib mobilization
--- NOTE | 2023-05-03 15:49 | PT.OTN ---
Current Diagnoses Other chronic pain (05/03/23) Pain in right shoulder (05/03/23) Pain in left shoulder (05/03/23) Physical Therapy Treatment Note PT-OP-A Visit Information Start: 04/12/23 07:17 Freq: Status: Active Protocol: Document 05/03/23 13:50 NM (Rec: 05/03/23 14:32 NM [id number]) Out-Patient Physical Therapy Visit Information Visit Information Visit Type Treatment Note Visit Note KX required after 19th visit/ yr Visit Start Time 13:50 Visit Stop Time 14:30 Total Visit Minutes 40 Visit Number 4 Evaluation Information Evaluation Date 04/10/23 PT-OP-B Current Condition Start: 04/12/23 07:17 Freq: Status: Active Protocol: Document 04/10/23 14:30 NM (Rec: 04/12/23 07:30 NM [id number]) Current Condition History of Current Condition Onset Date January 2023 Current Complaints pain between scapulae (R>L) History of Current Condition Pt presents to clinic with L thoracic/scapular pain beginning in January 2023. He reports that he was shoveling some dirt over his left shoulder when he felt a sharp pain on his L anterior side of the ribs and between the L scapula/spine. He was referred to the ED where he was dx with costochondritis and set home. He then went on a [address] trip later that week , which caused his pain to worsen. He then developed a rash from some lidocaine patches prescribed in the ED, which led to a dx of shingles along the L anterior chest whcih has since resolved. However, he does report decreased sensation in a thoracic dermatomal pattern in the trunk. He has been seeing Dr. Green for a 3 series injection inot the L periscapular muscles. PT reports previous thoracic spine injury from lifting weights in the . His primary complaint is muscle pain between the L scapula and the thoracic spine. Prior Treatments and Tests Successful PT for similar condition in [id number]. 02/2023 Radiographs: Thoracic spine DDD, mild scoliosis, no acute fracture or spondylolisthesis Treatment Goals Patient/Caregiver Goals Decrease pain between scapulae Prior Functional Status Baseline Function- ADL's Independent Baseline Function- Mobility Independent PT-OP-C Subjective Start: 04/12/23 07:17 Freq: Status: Active Protocol: Document 05/03/23 13:50 NM (Rec: 05/03/23 14:32 NM [id number]) OP-PT Subjective Patient Comments Patient Comments Reports 0/10 pain. Improved motion. He reports compliance with HEP. He followed up with his doctor after last session. Pt reports that he is no longer on gabapentin, removed by his doctor, which is what made him dizzy last time. PT-OP-E Functional Tests Start: 04/12/23 07:17 Freq: Status: Active Protocol: Document 04/10/23 14:30 NM (Rec: 04/12/23 07:30 NM [id number]) Functional Tests Apley's Scratch Test Action 1- Left to opposite shoulder Action 1- Right to opposite shoulder Action 2- Left T4 Action 2- Right T5 Action 3- Left T10 Action 3- Right T8 PT-OP-F Manual Assessment Start: 04/12/23 07:17 Freq: Status: Active Protocol: Document 04/10/23 14:30 NM (Rec: 04/12/23 07:30 NM [id number]) Manual Assessments Soft Tissue Assessment Soft Tissue Mobility Assessment Tenderness and moderate soft tissue restriction of L rhomboids, trapezius muscle, levator scapula, thoracic and cervical paraspinals. Joint Mobility Assessment Joint Mobility Assessment Normal shoulder and rib motion . Thoracic ribs intact and in place. No tenderness or symptom provocation with P-A springing of thoracic spine. Scapulothoracic assessment shows limitations in scapular retraction/protraction and L winging. PT-OP-H Neuro Start: 04/12/23 07:17 Freq: Status: Active Protocol: Document 04/10/23 14:30 NM (Rec: 04/12/23 07:30 NM [id number]) Sensation Evaluation Gross Sensation Gross Sensation Trunk Impaired Sensation Description Paresthesia Comments Summary Comments Reported decreased sensation along thoracic dermatomes on his L side ~T8-T10 Deep Tendon Reflex & Clonus Assessment Deep Tendon Reflex Right Bicep Deep Tendon Reflex 1+ Diminished Left Bicep Deep Tendon Reflex 2+ Normal PT-OP-J Posture/Palpation/Skin Start: 04/12/23 07:17 Freq: Status: Active Protocol: Document 04/10/23 14:30 NM (Rec: 04/12/23 07:30 NM [id number]) Posture Evaluation Position Standing Evaluation View posterior, lateral Head/C-Spine Posture Forward Head T-Spine Posture Increased Kyphosis Thorax Posture (L) Elevated,(L) Prominent L-Spine Posture Neutral Shoulder Posture (L) Rounded,(R) Rounded Shoulder Subluxation Degree (L) 2 Fingers wide,(R) 2 Fingers wide Scapula Posture (L) Protracted,(L) Winged Arm Posture (L) Externally Rotated,(R) Externally Rotated Pelvis Posture Neutral Weight Distribution Balanced Hip Posture (L) Neutral,(R) Neutral Palpation Assessment Location Anterior Trunk Palpation Location pectoralis major and minor Palpation Findings Soft Tissue Tightness, Tenderness Palpation Details Tenderness near clavicle and humeral insertion Thoracic Spine Palpation Location Paraspinals, rhomboids, trapezius Palpation Findings Soft Tissue Tightness,Spasm, Tenderness,Trigger Point Palpation Details Tenderness of rhomboids primarily, followed by trapezius and thoracic erector spinae. L>R tenderness. Trigger points on L rhomboids Skin Assessment Other Assessments Skin Assessment Comments Pt with noticable bruising along B rhomboids (L>R) consistent with trigger point injections. PT-OP-K Range of Motion Start: 04/12/23 07:17 Freq: Status: Active Protocol: Document 04/10/23 14:30 NM (Rec: 04/12/23 07:30 NM [id number]) Cervical Spine Range of Motion Cervical Spine Active Degrees Testing Position Sitting Flexion 60 Extension 60 Rotation Left 80 Rotation Right 65 Lateral Flexion Left 35 Lateral Flexion Right 35 ROM Limitations Soft Tissue Tightness Comments No pain reported Lumbar Spine Range of Motion Lumbar Spine Active Percentage Testing Position Standing Flexion 100 Extension 100 Lateral Flexion Left 100 Lateral Flexion Right 100 ROM Limitations Soft Tissue Tightness Comments L rotation: 9 cm R rotation: 15 cm Shoulder Goniometric Range of Motion Shoulder Left Shoulder ROM WFL Yes Testing Position Standing Comments Shoulder ROM WFL, no pain reported Right Shoulder ROM WFL Yes Testing Position Standing Comments Shoulder ROM WFL, no pain reported PT-OP-L Special Tests Start: 04/12/23 07:17 Freq: Status: Active Protocol: Document 04/10/23 14:30 NM (Rec: 04/12/23 07:30 NM [id number]) Special Tests Cervical Spine Special Tests Traction Test Results negative Spurling's Test Test Results negative Shoulder Special Tests Pectoralis Muscle Length Test Comments R: 7 cm off table L: 13 cm off table Arms at 120 deg abd + ER (arms behind head) PT-OP-M Strength Start: 04/12/23 07:17 Freq: Status: Active Protocol: Document 04/10/23 14:30 NM (Rec: 04/12/23 07:30 NM [id number]) Scapula Strength Scapula Manual Muscle Testing Right Elevation (C4) 4 Good Adduction 4 Good Abduction 4 Good Depression 4 Good Comments No pain reported Lower trap: 4/5 Middle trap: 4/5 Rhomboid: 4/5 Serratus Anterior: 4/5 Left Elevation (C4) 4 Good Adduction 4 Good Abduction 4 Good Depression 4 Good Comments Minimal pain reported with resisted lower/middle trapezius, rhomboid No pain with resisted serratus anterior muscle test (4/5) Lower trap: 4/5 Middle trap: 4/5 Rhomboid: 4/5 Serratus Anterior: 4/5 Shoulder Strength Shoulder Manual Muscle Testing Right Flexion 5 Normal Extension 5 Normal Abduction (C5) 5 Normal Adduction 5 Normal External Rotation 5 Normal Internal Rotation 5 Normal Horizontal Abduction 5 Normal Horizontal Adduction 5 Normal Comments Does not reproduce pain Left Flexion 5 Normal Extension 5 Normal Abduction (C5) 5 Normal Adduction 5 Normal External Rotation 5 Normal Internal Rotation 5 Normal Horizontal Abduction 5 Normal Horizontal Adduction 5 Normal Comments Does not reproduce pain PT-OP-Q Treatments Start: 04/12/23 07:17 Freq: Status: Active Protocol: Document 05/03/23 13:50 NM (Rec: 05/03/23 14:32 NM [id number]) Therapeutic Exercises Prone Exercises IYTW Prone Exercise Name d/c to standing Sitting Exercises Cervical retraction Sitting Exercise Name with slight overpressure using hand Side bilateral Reps/Minutes 1x10 with 2 hold Comments for posture; cues for correct execution; pt attempts to flex head Cervical spine stretches Sitting Exercise Name 1. UT, 2. LS Side bilateral Equipment Used sitting in chair, arm behind back to tension neck Reps/Minutes 2x30ea Comments tighter on L side; cues for no rot with LS stretch Standing Exercises Serratus punch Standing Exercise Name for serratus anterior activation Side bilateral Resistance purple tb Reps/Minutes 2x15 Comments cues for scap protraction, manual assist initially Row Standing Exercise Name mid row Side bilateral Resistance purple tb Reps/Minutes 2x12 ea with 3 hold Comments cues for scap retraction Shoulder ext Side bilateral Resistance purple tb Reps/Minutes 2x12 ea with 3 hold Comments cues for scap retraction Y lift off Standing Exercise Name add with tb next time Other Exercises Scapular mobilization Other Exercise Name with thoracic mob Side bilateral Equipment Used ~thread needle Reps/Minutes 1x5 ea Comments for scapular nerve and rib mobilization; cues for correct execution Thoracic rotation Other Exercise Name 1/2 kneel on wall-open book Side bilateral Resistance penobscot green tb (lvl 3) Equipment Used mat under knees Reps/Minutes 1x10 ea direction Comments cues for eyes to follow hands; L more difficult but no pain Manual Therapy Treatment Soft Tissue Mobilization Cervical spine Body Location UT, paraspinals Mobilization Type Rolling,Strumming,Sustained Pressure,Trigger Point Release Intensity/Depth Moderate Body Position Supine Comments Soft tissue of paraspinals, no tenderness of increased tightness requiring moderate pressure for relaxation. Trigger point identified at L upper trap near clavicle, very tender to pt. Performed sustained pressure on trigger point, instructed pt in soft tissue to self release 5-10 at home. Pt with minimal relief but ran out of time in session. L scapula Body Location rhomboids, levator scap Mobilization Type Cross-Friction,Myofascial Release,Sustained Pressure, Trigger Point Release Intensity/Depth Moderate Body Position Sidelying Comments Tenderness and trigger point L rhomboid, spasms with palpation. Sustained pressure on trigger point, able to relax muscle and decrease tenderness at trigger point. Joint Mobilizations cervical spine Joint C3-C7 Direction side glides Grade III Body Position Supine Reps/Duration 1x30 ea Comments Side glide with rotation and side bend for increased cervical spine ROM. More restricted to L, which trends with pt tendency to have restrictions of L side. Pt reports stiffness with cervical spine motion which is improved after mobilizations PT-OP-T Assessment and Plan Start: 04/12/23 07:17 Freq: Status: Active Protocol: Document 05/03/23 13:50 NM (Rec: 05/03/23 14:32 NM [id number]) Physical Therapy Assessment Goals Five Impairment function Impairment Current pain 3/10 Skilled Nursing Goal (LTG) Pt will report pain of 3/10 or less with ADLs in order to demo improved QOL and activity tolerance. 05/03/23: Pt reports 0/10 pain with ADLs LTG Duration 6 weeks Four Impairment strength Impairment periscapular strength globally 4/5 MMT Skilled Nursing Goal (LTG) Pt will improve global B scapular muscle strength to at least 4+/5 for improved postural and scapular control and to decrease pain symptoms. LTG Duration 6 weeks Three Impairment muscle length Impairment Pectoralis muscle Length L side 13 cm, R side 7 cm Bar Captain Goal (LTG) Pt will demo improved posture while sitting and standing in addition to decrease the strain on his periscapular muscles by decreasing the muscle length measurement of his L pectoralis major by at least 5 cm to be comparable to his R pectoralis major measurement. LTG Duration 6 weeks Two Impairment ROM Impairment Thoracic spine rotation R 15 cm, L 9 cm Bar Captain Goal (LTG) Pt will improve L thoracic spine rotation ROM to be within 3 cm of R thoracic rotation ROM for improved spinal mobility during ADLs/ IADLs like shoveling and gardening. LTG Duration 6 weeks One Impairment ROM Impairment C spine R rotation 65 deg Short Term Goal (STG) Pt will improve R cervical spine rotation ROM by at least 5 deg for improved visual scanning during driving. STG Duration 3 weeks Bar Captain Goal (LTG) Pt will improve R cervical spine rotation ROM to within 5 deg of his L rotation measurement for improved visual scanning during driving . LTG Duration 6 weeks Assessment Summary Assessment Initiated standing row, shoulder ext, serratus punch in order to strengthen periscapular and rotator cuff muscles. Added cervical spine stretches to decrease muscular restrictions; also added seated cervical retractions to address fwd head and rounded shoulders posture with posterior capsule tightness. Progressed open book to half kneel thoracic rotation; cues for eyes to follow hands for increased thoracic and cervical spine motions. Manual tmt focusing on improving cervical spine mobility and to promote soft tissue relaxation for improved pain management and posture. Pt demos trigger points in L upper trap. Pt is very compliant with exercises and is progressing toward goals. He reports improvement in his ability to tolerate ADLs, now mainly pain free. Will add B shoulder external rotation in next sessions and continue to address restrictions in cervical spine. HEP updated: UT/LS stretch, shoulder ext and row with theraband, serratus punch, and resisted thoracic rotation in 1/2 kneel . Pt would benefit from skilled PT to address limitations in spine and rib mobility, periscapular strength, postural education, and safe biomechanics education in order to improve symptom management, activity tolerance and return to PLOF. Physical Therapy Plan Frequency and Duration Frequency of Treatment 1x/Week Duration of treatment (weeks) 6 Plan of Care Start Date 04/10/23 Plan of Care End Date 05/22/23 Therapeutic Interventions Therapeutic Interventions Home Exercise Program,Joint Mobilizations,Manual Therapy, Neuromuscular Re-education, Patient/Caregiver Education, Self-Care/Home Management, Sensory Integration,Soft Tissue Mobilization,Taping, Therapeutic Activities, Therapeutic Exercises Modalities Biofeedback,Cold Pack/Ice Massage,Electric Stimulation, Hot Packs,Iontophoresis, Ultrasound,Vasopneumatic Devices Next Visit Focus/Plan Next Note Type Treatment Note Next Visit Plan Cont strengthening periscapular muscles, progress to cable rows/lat pull down. Address cervical spine with retraction, posture, soft tissue and mobilization. Add B shldr ER + flex. Check goals.
--- NOTE | 2023-05-09 11:06 | PT.OTN ---
Current Diagnoses Other chronic pain (05/09/23) Pain in right shoulder (05/09/23) Pain in left shoulder (05/09/23) Physical Therapy Treatment Note PT-OP-A Visit Information Start: 04/12/23 07:17 Freq: Status: Active Protocol: Document 05/09/23 09:42 SW (Rec: 05/09/23 11:06 SW [id number]) Out-Patient Physical Therapy Visit Information Visit Information Visit Type Treatment Note Visit Note KX required after 19th visit/ yr Visit Start Time 09:50 Visit Stop Time 10:30 Total Visit Minutes 40 Visit Number 5 Number of MEDICAL LABORATORY TECHNOLOGIST Visits 1 PT-OP-B Current Condition Start: 04/12/23 07:17 Freq: Status: Active Protocol: Document 04/10/23 14:30 NM (Rec: 04/12/23 07:30 NM [id number]) Current Condition History of Current Condition Onset Date January 2023 Current Complaints pain between scapulae (R>L) History of Current Condition Pt presents to clinic with L thoracic/scapular pain beginning in January 2023. He reports that he was shoveling some dirt over his left shoulder when he felt a sharp pain on his L anterior side of the ribs and between the L scapula/spine. He was referred to the ED where he was dx with costochondritis and set home. He then went on a [address] trip later that week , which caused his pain to worsen. He then developed a rash from some lidocaine patches prescribed in the ED, which led to a dx of shingles along the L anterior chest whcih has since resolved. However, he does report decreased sensation in a thoracic dermatomal pattern in the trunk. He has been seeing Dr. Green for a 3 series injection inot the L periscapular muscles. PT reports previous thoracic spine injury from lifting weights in the . His primary complaint is muscle pain between the L scapula and the thoracic spine. Prior Treatments and Tests Successful PT for similar condition in [id number]. 02/2023 Radiographs: Thoracic spine DDD, mild scoliosis, no acute fracture or spondylolisthesis Treatment Goals Patient/Caregiver Goals Decrease pain between scapulae Prior Functional Status Baseline Function- ADL's Independent Baseline Function- Mobility Independent PT-OP-C Subjective Start: 04/12/23 07:17 Freq: Status: Active Protocol: Document 05/09/23 09:42 SW (Rec: 05/09/23 11:06 SW [id number]) OP-PT Subjective Patient Comments Patient Comments Pt reports no pain today, neck sore from stretches, but denies pain. PT-OP-E Functional Tests Start: 04/12/23 07:17 Freq: Status: Active Protocol: Document 04/10/23 14:30 NM (Rec: 04/12/23 07:30 NM [id number]) Functional Tests Apley's Scratch Test Action 1- Left to opposite shoulder Action 1- Right to opposite shoulder Action 2- Left T4 Action 2- Right T5 Action 3- Left T10 Action 3- Right T8 PT-OP-F Manual Assessment Start: 04/12/23 07:17 Freq: Status: Active Protocol: Document 04/10/23 14:30 NM (Rec: 04/12/23 07:30 NM [id number]) Manual Assessments Soft Tissue Assessment Soft Tissue Mobility Assessment Tenderness and moderate soft tissue restriction of L rhomboids, trapezius muscle, levator scapula, thoracic and cervical paraspinals. Joint Mobility Assessment Joint Mobility Assessment Normal shoulder and rib motion . Thoracic ribs intact and in place. No tenderness or symptom provocation with P-A springing of thoracic spine. Scapulothoracic assessment shows limitations in scapular retraction/protraction and L winging. PT-OP-H Neuro Start: 04/12/23 07:17 Freq: Status: Active Protocol: Document 04/10/23 14:30 NM (Rec: 04/12/23 07:30 NM [id number]) Sensation Evaluation Gross Sensation Gross Sensation Trunk Impaired Sensation Description Paresthesia Comments Summary Comments Reported decreased sensation along thoracic dermatomes on his L side ~T8-T10 Deep Tendon Reflex & Clonus Assessment Deep Tendon Reflex Right Bicep Deep Tendon Reflex 1+ Diminished Left Bicep Deep Tendon Reflex 2+ Normal PT-OP-J Posture/Palpation/Skin Start: 04/12/23 07:17 Freq: Status: Active Protocol: Document 04/10/23 14:30 NM (Rec: 04/12/23 07:30 NM [id number]) Posture Evaluation Position Standing Evaluation View posterior, lateral Head/C-Spine Posture Forward Head T-Spine Posture Increased Kyphosis Thorax Posture (L) Elevated,(L) Prominent L-Spine Posture Neutral Shoulder Posture (L) Rounded,(R) Rounded Shoulder Subluxation Degree (L) 2 Fingers wide,(R) 2 Fingers wide Scapula Posture (L) Protracted,(L) Winged Arm Posture (L) Externally Rotated,(R) Externally Rotated Pelvis Posture Neutral Weight Distribution Balanced Hip Posture (L) Neutral,(R) Neutral Palpation Assessment Location Anterior Trunk Palpation Location pectoralis major and minor Palpation Findings Soft Tissue Tightness, Tenderness Palpation Details Tenderness near clavicle and humeral insertion Thoracic Spine Palpation Location Paraspinals, rhomboids, trapezius Palpation Findings Soft Tissue Tightness,Spasm, Tenderness,Trigger Point Palpation Details Tenderness of rhomboids primarily, followed by trapezius and thoracic erector spinae. L>R tenderness. Trigger points on L rhomboids Skin Assessment Other Assessments Skin Assessment Comments Pt with noticable bruising along B rhomboids (L>R) consistent with trigger point injections. PT-OP-K Range of Motion Start: 04/12/23 07:17 Freq: Status: Active Protocol: Document 04/10/23 14:30 NM (Rec: 04/12/23 07:30 NM [id number]) Cervical Spine Range of Motion Cervical Spine Active Degrees Testing Position Sitting Flexion 60 Extension 60 Rotation Left 80 Rotation Right 65 Lateral Flexion Left 35 Lateral Flexion Right 35 ROM Limitations Soft Tissue Tightness Comments No pain reported Lumbar Spine Range of Motion Lumbar Spine Active Percentage Testing Position Standing Flexion 100 Extension 100 Lateral Flexion Left 100 Lateral Flexion Right 100 ROM Limitations Soft Tissue Tightness Comments L rotation: 9 cm R rotation: 15 cm Shoulder Goniometric Range of Motion Shoulder Left Shoulder ROM WFL Yes Testing Position Standing Comments Shoulder ROM WFL, no pain reported Right Shoulder ROM WFL Yes Testing Position Standing Comments Shoulder ROM WFL, no pain reported PT-OP-L Special Tests Start: 04/12/23 07:17 Freq: Status: Active Protocol: Document 04/10/23 14:30 NM (Rec: 04/12/23 07:30 NM [id number]) Special Tests Cervical Spine Special Tests Traction Test Results negative Spurling's Test Test Results negative Shoulder Special Tests Pectoralis Muscle Length Test Comments R: 7 cm off table L: 13 cm off table Arms at 120 deg abd + ER (arms behind head) PT-OP-M Strength Start: 04/12/23 07:17 Freq: Status: Active Protocol: Document 04/10/23 14:30 NM (Rec: 04/12/23 07:30 NM [id number]) Scapula Strength Scapula Manual Muscle Testing Right Elevation (C4) 4 Good Adduction 4 Good Abduction 4 Good Depression 4 Good Comments No pain reported Lower trap: 4/5 Middle trap: 4/5 Rhomboid: 4/5 Serratus Anterior: 4/5 Left Elevation (C4) 4 Good Adduction 4 Good Abduction 4 Good Depression 4 Good Comments Minimal pain reported with resisted lower/middle trapezius, rhomboid No pain with resisted serratus anterior muscle test (4/5) Lower trap: 4/5 Middle trap: 4/5 Rhomboid: 4/5 Serratus Anterior: 4/5 Shoulder Strength Shoulder Manual Muscle Testing Right Flexion 5 Normal Extension 5 Normal Abduction (C5) 5 Normal Adduction 5 Normal External Rotation 5 Normal Internal Rotation 5 Normal Horizontal Abduction 5 Normal Horizontal Adduction 5 Normal Comments Does not reproduce pain Left Flexion 5 Normal Extension 5 Normal Abduction (C5) 5 Normal Adduction 5 Normal External Rotation 5 Normal Internal Rotation 5 Normal Horizontal Abduction 5 Normal Horizontal Adduction 5 Normal Comments Does not reproduce pain PT-OP-Q Treatments Start: 04/12/23 07:17 Freq: Status: Active Protocol: Document 05/09/23 09:42 (Rec: 05/09/23 11:06 [id number]) Therapeutic Exercises Sitting Exercises Cervical retraction Sitting Exercise Name with slight overpressure using hand Side bilateral Reps/Minutes 1x10 with 3 hold Comments for posture; cues for correct execution; pt attempts to flex head Standing Exercises Serratus punch Standing Exercise Name for serratus anterior activation Side bilateral Resistance purple tb Reps/Minutes 2x15 Comments cues for scap protraction, manual assist initially Row Standing Exercise Name mid row Side bilateral Resistance purple tb Reps/Minutes 2x12 ea with 3 hold Comments cues for scap retraction, cervial retraction Shoulder ext Side bilateral Resistance purple tb Reps/Minutes 2x12 ea with 3 hold Comments cues for scap retraction, cervical retraction Y lift off Standing Exercise Name Y lift off, alternating, issued HEP Side bilateral Resistance level 1 TB Equipment Used at wall Comments cues for cervical retraction, review next, prior to resistance to HEP Self mobilization Standing Exercise Name upper trap, rhomboids, levator scapula Side bilateral Comments Reviewed d/t palpation, muscle tension w/periscapular STM Manual Therapy Treatment Soft Tissue Mobilization R Scapula Body Location periscapular Mobilization Type Cross-Friction,Myofascial Release,Sustained Pressure, Trigger Point Release Comments palpable tenderness/ mm tension and trigger point, reviewed self STM with tennis ball for HEP at home Cervical spine Body Location UT, paraspinals Mobilization Type Rolling,Strumming,Sustained Pressure,Trigger Point Release Intensity/Depth Moderate Body Position Supine Comments Soft tissue of paraspinals, no tenderness of increased tightness requiring moderate pressure for relaxation. Trigger point identified at L upper trap near clavicle, very tender to pt. Performed sustained pressure on trigger point, instructed pt in soft tissue to self release 5-10 at home. Pt with minimal relief but ran out of time in session. L scapula Body Location rhomboids, levator scap Mobilization Type Cross-Friction,Myofascial Release,Sustained Pressure, Trigger Point Release Intensity/Depth Moderate Body Position Sidelying Comments Tenderness and trigger point L rhomboid, spasms with palpation. Sustained pressure on trigger point, able to relax muscle and decrease tenderness at trigger point. Joint Mobilizations cervical spine Joint C3-C7 Direction side glides Grade III Body Position Supine Reps/Duration 1x30 ea Comments Side glide with rotation and side bend for increased cervical spine ROM. More restricted to L, which trends with pt tendency to have restrictions of L side. Pt reports stiffness with cervical spine motion which is improved after mobilizations Self-Care/Home Management Treatment Education Patient Education Body Mechanics,Home Exercise Program,Posture Other Education educated patient on sleep position for cervical alignment, reviewed HEP progression, educated pt on breathing for relaxation/ decreased accessory muscle activation PT-OP-T Assessment and Plan Start: 04/12/23 07:17 Freq: Status: Active Protocol: Document 05/09/23 09:42 (Rec: 05/09/23 11:06 [id number]) Physical Therapy Assessment Goals Five Impairment function Impairment Current pain 3/10 Jail Goal (LTG) Pt will report pain of 3/10 or less with ADLs in order to demo improved QOL and activity tolerance. 05/03/23: Pt reports 0/10 pain with ADLs LTG Duration 6 weeks Four Impairment strength Impairment periscapular strength globally 4/5 MMT Immunohematologist Goal (LTG) Pt will improve global B scapular muscle strength to at least 4+/5 for improved postural and scapular control and to decrease pain symptoms. LTG Duration 6 weeks Three Impairment muscle length Impairment Pectoralis muscle Length L side 13 cm, R side 7 cm Immunohematologist Goal (LTG) Pt will demo improved posture while sitting and standing in addition to decrease the strain on his periscapular muscles by decreasing the muscle length measurement of his L pectoralis major by at least 5 cm to be comparable to his R pectoralis major measurement. LTG Duration 6 weeks Two Impairment ROM Impairment Thoracic spine rotation R 15 cm, L 9 cm Jail Goal (LTG) Pt will improve L thoracic spine rotation ROM to be within 3 cm of R thoracic rotation ROM for improved spinal mobility during ADLs/ IADLs like shoveling and gardening. LTG Duration 6 weeks One Impairment ROM Impairment C spine R rotation 65 deg Short Term Goal (STG) Pt will improve R cervical spine rotation ROM by at least 5 deg for improved visual scanning during driving. STG Duration 3 weeks Immunohematologist Goal (LTG) Pt will improve R cervical spine rotation ROM to within 5 deg of his L rotation measurement for improved visual scanning during driving . LTG Duration 6 weeks Assessment Summary Assessment STM focus on cervical spine this session to address palpable tension R>L pt reported tenderness on right side and increase cervical ROM toward pt goals. Initiated Y lift off with TB resistance, verbal cues for postural alignment, plan to review for correct execution next session prior to addition with resistance to HEP, issued HO for Y lift off at wall w/out resistance. Focused on cervical retraction, educated patient on correct execution requiring verbal cues, pt felt good stretch in subocciptal muscles, pt reported tension into R shoulder relieved post retraction. Physical Therapy Plan Frequency and Duration Frequency of Treatment 1x/Week Duration of treatment (weeks) 6 Plan of Care Start Date 04/10/23 Plan of Care End Date 05/22/23 Therapeutic Interventions Therapeutic Interventions Home Exercise Program,Joint Mobilizations,Manual Therapy, Neuromuscular Re-education, Patient/Caregiver Education, Self-Care/Home Management, Sensory Integration,Soft Tissue Mobilization,Taping, Therapeutic Activities, Therapeutic Exercises Modalities Biofeedback,Cold Pack/Ice Massage,Electric Stimulation, Hot Packs,Iontophoresis, Ultrasound,Vasopneumatic Devices Next Visit Focus/Plan Next Note Type Treatment Note Next Visit Plan Cont strengthening periscapular muscles, progress to cable rows/lat pull down. Address cervical spine with retraction, posture, soft tissue and mobilization. Add B shldr ER + flex. Check goals.
--- NOTE | 2023-05-23 10:58 | PT.OTN ---
Current Diagnoses Other chronic pain (05/23/23) Pain in right shoulder (05/23/23) Pain in left shoulder (05/23/23) Physical Therapy Treatment Note PT-OP-A Visit Information Start: 04/12/23 07:17 Freq: Status: Active Protocol: Document 05/23/23 09:48 NM (Rec: 05/23/23 10:58 NM [id number]) Out-Patient Physical Therapy Visit Information Visit Information Visit Type Discharge Summary Visit Note KX required after 19th visit/ yr Visit Start Time 09:48 Visit Stop Time 10:30 Visit Number 6 Evaluation Information Evaluation Date 04/10/23 PT-OP-B Current Condition Start: 04/12/23 07:17 Freq: Status: Active Protocol: Document 04/10/23 14:30 NM (Rec: 04/12/23 07:30 NM [id number]) Current Condition History of Current Condition Onset Date January 2023 Current Complaints pain between scapulae (R>L) History of Current Condition Pt presents to clinic with L thoracic/scapular pain beginning in January 2023. He reports that he was shoveling some dirt over his left shoulder when he felt a sharp pain on his L anterior side of the ribs and between the L scapula/spine. He was referred to the ED where he was dx with costochondritis and set home. He then went on a [address] trip later that week , which caused his pain to worsen. He then developed a rash from some lidocaine patches prescribed in the ED, which led to a dx of shingles along the L anterior chest whcih has since resolved. However, he does report decreased sensation in a thoracic dermatomal pattern in the trunk. He has been seeing Dr. Green for a 3 series injection inot the L periscapular muscles. PT reports previous thoracic spine injury from lifting weights in the . His primary complaint is muscle pain between the L scapula and the thoracic spine. Prior Treatments and Tests Successful PT for similar condition in [id number]. 02/2023 Radiographs: Thoracic spine DDD, mild scoliosis, no acute fracture or spondylolisthesis Treatment Goals Patient/Caregiver Goals Decrease pain between scapulae Prior Functional Status Baseline Function- ADL's Independent Baseline Function- Mobility Independent PT-OP-C Subjective Start: 04/12/23 07:17 Freq: Status: Active Protocol: Document 05/23/23 09:48 NM (Rec: 05/23/23 10:58 NM [id number]) OP-PT Subjective Patient Comments Patient Comments Pt reports minimal neck soreness but no pain. He reports that he hasn't been having any difficulty due to pain or ADLs/iADLs. He is no longer having any muscle soreness or his original symptoms that brought him to PT. PT-OP-E Functional Tests Start: 04/12/23 07:17 Freq: Status: Active Protocol: Document 04/10/23 14:30 NM (Rec: 04/12/23 07:30 NM [id number]) Functional Tests Apley's Scratch Test Action 1- Left to opposite shoulder Action 1- Right to opposite shoulder Action 2- Left T4 Action 2- Right T5 Action 3- Left T10 Action 3- Right T8 PT-OP-F Manual Assessment Start: 04/12/23 07:17 Freq: Status: Active Protocol: Document 04/10/23 14:30 NM (Rec: 04/12/23 07:30 NM [id number]) Manual Assessments Soft Tissue Assessment Soft Tissue Mobility Assessment Tenderness and moderate soft tissue restriction of L rhomboids, trapezius muscle, levator scapula, thoracic and cervical paraspinals. Joint Mobility Assessment Joint Mobility Assessment Normal shoulder and rib motion . Thoracic ribs intact and in place. No tenderness or symptom provocation with P-A springing of thoracic spine. Scapulothoracic assessment shows limitations in scapular retraction/protraction and L winging. PT-OP-H Neuro Start: 04/12/23 07:17 Freq: Status: Active Protocol: Document 04/10/23 14:30 NM (Rec: 04/12/23 07:30 NM [id number]) Sensation Evaluation Gross Sensation Gross Sensation Trunk Impaired Sensation Description Paresthesia Comments Summary Comments Reported decreased sensation along thoracic dermatomes on his L side ~T8-T10 Deep Tendon Reflex & Clonus Assessment Deep Tendon Reflex Right Bicep Deep Tendon Reflex 1+ Diminished Left Bicep Deep Tendon Reflex 2+ Normal PT-OP-J Posture/Palpation/Skin Start: 04/12/23 07:17 Freq: Status: Active Protocol: Document 04/10/23 14:30 NM (Rec: 04/12/23 07:30 NM [id number]) Posture Evaluation Position Standing Evaluation View posterior, lateral Head/C-Spine Posture Forward Head T-Spine Posture Increased Kyphosis Thorax Posture (L) Elevated,(L) Prominent L-Spine Posture Neutral Shoulder Posture (L) Rounded,(R) Rounded Shoulder Subluxation Degree (L) 2 Fingers wide,(R) 2 Fingers wide Scapula Posture (L) Protracted,(L) Winged Arm Posture (L) Externally Rotated,(R) Externally Rotated Pelvis Posture Neutral Weight Distribution Balanced Hip Posture (L) Neutral,(R) Neutral Palpation Assessment Location Anterior Trunk Palpation Location pectoralis major and minor Palpation Findings Soft Tissue Tightness, Tenderness Palpation Details Tenderness near clavicle and humeral insertion Thoracic Spine Palpation Location Paraspinals, rhomboids, trapezius Palpation Findings Soft Tissue Tightness,Spasm, Tenderness,Trigger Point Palpation Details Tenderness of rhomboids primarily, followed by trapezius and thoracic erector spinae. L>R tenderness. Trigger points on L rhomboids Skin Assessment Other Assessments Skin Assessment Comments Pt with noticable bruising along B rhomboids (L>R) consistent with trigger point injections. PT-OP-K Range of Motion Start: 04/12/23 07:17 Freq: Status: Active Protocol: Document 05/23/23 09:48 NM (Rec: 05/23/23 10:58 NM [id number]) Cervical Spine Range of Motion Cervical Spine Active Degrees Testing Position Sitting Flexion 60 Extension 60 Rotation Left 80 Rotation Right 65 Lateral Flexion Left 35 Lateral Flexion Right 35 ROM Limitations Soft Tissue Tightness Comments No pain reported 05/23/23: B cervical spine rotation 80 deg Lumbar Spine Range of Motion Lumbar Spine Active Percentage Testing Position Standing Flexion 100 Extension 100 Lateral Flexion Left 100 Lateral Flexion Right 100 ROM Limitations Soft Tissue Tightness Comments L rotation: 9 cm R rotation: 15 cm 05/23/23: 10 cm rotation bilaterally, no pain PT-OP-L Special Tests Start: 04/12/23 07:17 Freq: Status: Active Protocol: Document 04/10/23 14:30 NM (Rec: 04/12/23 07:30 NM [id number]) Special Tests Cervical Spine Special Tests Traction Test Results negative Spurling's Test Test Results negative Shoulder Special Tests Pectoralis Muscle Length Test Comments R: 7 cm off table L: 13 cm off table Arms at 120 deg abd + ER (arms behind head) PT-OP-M Strength Start: 04/12/23 07:17 Freq: Status: Active Protocol: Document 05/23/23 09:48 NM (Rec: 05/23/23 10:58 NM [id number]) Scapula Strength Scapula Manual Muscle Testing Right Elevation (C4) 4 Good Adduction 4 Good Abduction 4 Good Depression 4 Good Comments 05/23/23: 4+/5 for depression, 5/5 abd/add/elevation/ protraction; no pain Left Elevation (C4) 4 Good Adduction 4 Good Abduction 4 Good Depression 4 Good Comments 05/23/23: 4+/5 for depression, 5/5 abd/add/elevation/ protraction; no pain PT-OP-Q Treatments Start: 04/12/23 07:17 Freq: Status: Active Protocol: Document 05/23/23 09:48 NM (Rec: 05/23/23 10:58 NM [id number]) Therapeutic Exercises Supine Exercises Foam Roller Supine Exercise Name instructed to continue pec stretch and thoracic ext as part of HEP review Prone Exercises IYTW Prone Exercise Name instructed to continue in standing as part of HEP review Reps/Minutes 1x5 Comments performed as part of muscle testing Sidelying Exercises Open books Sidelying Exercise Name instructed to continue as part of HEP review Sitting Exercises Cervical spine stretches Sitting Exercise Name 1. UT, 2. LS Side bilateral Equipment Used sitting in chair, arm behind back to tension neck Reps/Minutes 1x30ea Comments tighter on L side; cues for no rot with LS stretch Standing Exercises D2 flexion Standing Exercise Name Y- lower trap, RTC strengthening Side bilateral Resistance lvl 2 and 3 tb together Reps/Minutes 2x10 Comments cue for scap setting, no upper trap compensation as fatigue Bilateral shldr ER (W) Standing Exercise Name at 45 deg abd with scapular retraction Side bilateral Equipment Used teal tb lvl 2 Reps/Minutes 2x10 Comments cue for scap setting, good scap retraction; demos good form but hard Wall push up Standing Exercise Name 1. push up plus, 2. field goal (ER), 3. tito (IR) Side bilateral Equipment Used wall, arms at shoulder height Reps/Minutes 1x10 Comments reports feeling it working but no pain Row Standing Exercise Name instructed to continue as part of HEP review Shoulder ext Standing Exercise Name instructed to continue as part of HEP review Y lift off Standing Exercise Name progressed to D2 flexion Self mobilization Standing Exercise Name instructed to continue prn as part of HEP review Other Exercises Scapular mobilization Other Exercise Name with thoracic mob Side bilateral Equipment Used ~thread needle Reps/Minutes 1x10 ea Comments for scapular nerve and rib mobilization; cues for correct execution Thoracic rotation Other Exercise Name standing at wall Side bilateral Resistance yurok green tb (lvl 3) Equipment Used mat under knees Reps/Minutes 1x10 ea direction Comments cues for eyes to follow hands; symmetrical Self-Care/Home Management Treatment Education Patient Education Body Mechanics,Home Exercise Program,Pain Management, Posture Other Education PT educated pt on continuing to use good posture and ergonomics when sitting/ working in order to decrease strain on thoracic and cervical spine muscles. Reviewed previous HEP and finalized HEP for discharge today: B scapular retractions with band, push up plus/ER/IR, quadruped thread the needle, D2 flexion. PT also educated pt on modalities for pain management if symptoms return, exercise, and to follow up with PCP. PT-OP-T Assessment and Plan Start: 04/12/23 07:17 Freq: Status: Active Protocol: Document 05/23/23 09:48 NM (Rec: 05/23/23 10:58 NM [id number]) Physical Therapy Assessment Goals Five Impairment function Impairment Current pain 3/10 Mcc Goal (LTG) Pt will report pain of 3/10 or less with ADLs in order to demo improved QOL and activity tolerance. 05/23/23: MET- reports 0/10 pain 05/03/23: Pt reports 0/10 pain with ADLs LTG Duration 6 weeks MET Four Impairment strength Impairment periscapular strength globally 4/5 MMT Laser Cutter Goal (LTG) Pt will improve global B scapular muscle strength to at least 4+/5 for improved postural and scapular control and to decrease pain symptoms. 05/23/23: MET- 4+/5 for scapular Depression; 5/5 for ADD/ABD/Elevation/Protraction LTG Duration 6 weeks MET Three Impairment muscle length Impairment Pectoralis muscle Length L side 13 cm, R side 7 cm Laser Cutter Goal (LTG) Pt will demo improved posture while sitting and standing in addition to decrease the strain on his periscapular muscles by decreasing the muscle length measurement of his L pectoralis major by at least 5 cm to be comparable to his R pectoralis major measurement. 05/23/23: MET-4 cm R, 6 cm L from table LTG Duration 6 weeks MET Two Impairment ROM Impairment Thoracic spine rotation R 15 cm, L 9 cm Laser Cutter Goal (LTG) Pt will improve L thoracic spine rotation ROM to be within 3 cm of R thoracic rotation ROM for improved spinal mobility during ADLs/ IADLs like shoveling and gardening. 05/23/23: MET- 10 cm ea direction for thoracic rotation, no pain LTG Duration 6 weeks MET One Impairment ROM Impairment C spine R rotation 65 deg Short Term Goal (STG) Pt will improve R cervical spine rotation ROM by at least 5 deg for improved visual scanning during driving. STG Duration 3 weeks Laser Cutter Goal (LTG) Pt will improve R cervical spine rotation ROM to within 5 deg of his L rotation measurement for improved visual scanning during driving . 05/23/23: 80 deg cervical spine rotation bilaterally, no pain LTG Duration 6 weeks MET Progress Towards Goals Progress Towards Goals Goals Met Progress Comments All goals met; pt pain free Assessment Summary Assessment Treatment focus on thoracic and cervical spine exercises to maximize ROM and shoulder/ trunk strength. Pt planning on discharging today as POC is ending, so reviewed previous HEPs and created final HEP for independent exercise. Initiated standing bilateral shoulder ER W for postural muscle activation and scapular control. Pt requires cues for correct execution and scapular setting; however, performs well without pain/ discomfort. Progressed from Y liftoff to D2 flexion with resistance; pt able to control scapula well and is able to perform without pain with minimal upper trapezius compensations until he fatigues. Continued with cervical spine stretches and thoracic rotation mobility exercises to encourage greater muscle length and relaxation. Pt reports good feedback with stretches and mobility exercises, demonstrating improved spine mobility. Pt has been seen since March 2023 for thoracic spine and scapular pain. He has consistently been pain free for several weeks, particularly in the muscles between his B scapulae. He demonstrates increased B cervical spine ROM and periscapular strength, able to perform with good AROM and maintain contraction against resistance. Pt also has improved trunk posture without forward flexion and pectoral muscle length measurements compared to IE. He reports that he is able to perform all ADLs/IADLs in addition to any recreational activities without pain or limitation. Pt 's trunk/cervical spine strength and mobility has been consistently improving since IE. He currently has met all goals and is safe for discharge to independent exercise. PT and pt discussed discharge with HEP for independent exercise to maximize gains made during this episode of care; PT and pt in agreement. HEP handout provided. PT also educated pt on continued good posture/ ergonomics during work, body mechanics. PT educated pt to follow up with PCP if symptoms return or worsen, pt verbalizes understanding. Physical Therapy Plan Frequency and Duration Frequency of Treatment 1x/Week Duration of treatment (weeks) 6 Plan of Care Start Date 04/10/23 Plan of Care End Date 05/22/23 Therapeutic Interventions Therapeutic Interventions Home Exercise Program,Joint Mobilizations,Manual Therapy, Neuromuscular Re-education, Patient/Caregiver Education, Self-Care/Home Management, Sensory Integration,Soft Tissue Mobilization,Taping, Therapeutic Activities, Therapeutic Exercises Modalities Biofeedback,Cold Pack/Ice Massage,Electric Stimulation, Hot Packs,Iontophoresis, Ultrasound,Vasopneumatic Devices Discharge Physical Therapy Discharge Reasons Goals Met Discharge Comments All goals met, pt pain free and able to perform all ADLs/ IADLs without difficulty. Next Visit Focus/Plan Next Visit Plan Discharge from PT
== END 2023-06-13 13:31 | disposition home or self-care (01) ==
LOC: PHYS 09:45
PROVIDERS: Family Provider Family Medicine; PCP Family Medicine; Referring Provider Family Medicine; Visit Provider Family Medicine
DX: M25.511 Pain in right shoulder (principal); M25.512 Pain in left shoulder; G89.29 Other chronic pain
CPT/HCPCS: 97110; 97140; 97161; 97535

== ENCOUNTER → 2024-11-10 11:33 | Outpatient (CLI) | payer MEDICARE, OTHER, SELFPAY ==
[2024-11-10 12:27] LABS: Protein (Total) Urine Random 7 mg/dL (0-12); Protein Creatinine Ratio Urine 0.07 GRAM/24H
[2024-11-10 12:46] LABS: Alanine Aminotransferase 15 IU/L (<50); Albumin 4.3 g/dL (3.5-5.0); Albumin Globulin Ratio 1.9 (1.0-2.8); Alkaline Phosphatase 64 U/L (38-126); Blood Urea Nitrogen 22 mg/dL (9-20); Calcium 9.5 mg/dL (8.4-10.2); Carbon Dioxide 26 mmol/L (22-32); Chloride 105 mmol/L (98-107); Estimated Glomerular Filt Rate > 60 mL/min (>60); Globulin 2.3 g/dL (1.7-4.1); Glucose 95 mg/dL (70-99); HEMOLYSIS < 15 (0-50); Potassium 4.6 mmol/L (3.4-5.1); Sodium 138 mmol/L (137-145); Total Protein 6.6 g/dL (6.3-8.2)
[2024-11-10 13:37] LABS: Vitamin B12 Reflex MMA if <400 427 pg/mL (239-931)
[2024-11-11 05:09] LABS: CRP, High Sensitivity 1.16 mg/L (0.00-3.00)
[2024-11-12 07:09] LABS: Insulin Level Total 13.3 uIU/mL (2.6-24.9)
== END ==
PROVIDERS: Family Provider Family Medicine; PCP Family Medicine; Referring Provider Family Medicine; Visit Provider Family Medicine
DX: Z12.5 Encounter for screening for malignant neoplasm of prostate (principal); G62.9 Polyneuropathy, unspecified; R73.01 Impaired fasting glucose; E78.00 Pure hypercholesterolemia, unspecified; R03.0 Elevated blood-pressure reading, without diagnosis of hypertension
CPT/HCPCS: 36415; 80053; 82570; 82607; 83525; 84156; 86140; G0103